=== PATIENT | male | born 1955 | race Two or more races ===

== ENCOUNTER 2016-12-23 10:33 | Inpatient (IN) | payer OTHER ==
[~2016-12-23] VITALS: Ht 167.6 cm; Wt 68.9 kg
[2016-12-23] MEDS ORDERED: ZIPRASIDONE MESYLATE 20 MG/VIAL VIAL IM ONE ×2 (11:00→11:14)
[2016-12-23] MEDS ORDERED: LORAZEPAM INJ 2 MG/ML VIAL IV ONE (11:00)
[2016-12-23] MEDS ORDERED: IV NS 0.9% 1,000 ML BAG IV ONE (11:00)
--- NOTE | 2016-12-23 11:00 | NUR ---
PT BIB FAMILY FOR INSOMNIA X 1 WEEK. PER FAMILY MEMBER PT WAS STARTED ON SOME STERIODS FOR 1 MONTH BY PMD FOR RESPIRATORY ISSUES AND STARTED ACTING PSYCHOTIC AND AGGRESSIVE. SEEN BY MD FOR EVAL. SAFETY AND COMFORT MEASURES PROVIDED. WILL MONITOR.
[2016-12-23 11:13] LABS: APPEARANCE,URINE Clear (CLEAR); BILIRUBIN,URINE Negative (NEGATIVE); BLOOD, URINE Negative Ery/uL (NEGATIVE); COLOR,URINE Yellow (YELLOW); KETONES,URINE Trace (NEGATIVE); LEUKOCYTE ESTERASE ,URINE Negative (NEGATIVE); NITRITE, URINE Negative (NEGATIVE); PH,URINE 5.5 (5.0-8.0); PROTEIN,URINE Negative (NEGATIVE); UGLUCOSE Negative (NEGATIVE); UROBILINOGEN,URINE 0.2 EU/dL (0.2)
[2016-12-23] MEDS ORDERED: LORAZEPAM INJ 2 MG/ML VIAL ONE (11:14)
[2016-12-23] MEDS ORDERED: IV NS 0.9% 1,000 ML ONE (11:14)
[2016-12-23 11:18] LABS: BACTERIA,URINE None seen /HPF (None Seen); RBC,URINE NONE SEEN /HPF (0-2); WBC,URINE 0-2 /HPF (0-3)
[2016-12-23 11:19] LABS: SQUAMOUS EPITHELIAL CELL,UR Rare /HPF (None Seen)
[2016-12-23 11:21] LABS: MONOCYTES # (AUTO) 1.1 /CMM (0.1-1.30)
[2016-12-23 11:30] LABS: RED BLOOD CELL COUNT(AUTO) 4.89 MIL/uL (4.5-6.0)
[2016-12-23 11:33] LABS: INR 1.05 (0.87-1.13); PROTHROMBIN TIME 10.9 SECS (9.5-12.7)
[2016-12-23 11:34] LABS: ALANINE AMINOTRANSFERASE 48 U/L (12-78); ALBUMIN 3.8 g/dL (3.4-5.0); ALCOHOL, BLOOD < 3 mg/dL (0-0); ALKALINE PHOSPHATASE 85 U/L (46-116); ASPARTATE AMINOTRANSFERASE 33 U/L (15-37); BILIRUBIN,DIRECT 0.2 mg/dL (0.0-0.2); BILIRUBIN,TOTAL 1.2 mg/dL (0.2-1.0); CARBON DIOXIDE 26 mmol/L (21-32); CHLORIDE 99 mmol/L (98-107); CREATININE 0.9 mg/dL (0.6-1.3); GLUCOSE 119 mg/dL (74-106); POTASSIUM 3.3 mmol/L (3.5-5.1); SODIUM SERUM 136 mmol/L (136-145); TOTAL PROTEIN, SERUM 7.2 g/dL (6.4-8.2); UREA NITROGEN, BLOOD 10 mg/dL (7-18)
[2016-12-23 11:36] LABS: ACETAMINOPHEN 0 ug/ml (10-30); BASOPHILS # (AUTO) 0.3 /CMM (0.0-0.2); BASOPHILS % (AUTO) 1.7 % (0.0-2.0); EOSINOPHILS # (AUTO) 0.1 /CMM (0.0-0.7); EOSINOPHILS % (AUTO) 0.4 % (0.0-6.0); HEMATOCRIT 44 % (39-51); HEMOGLOBIN 15.1 g/dL (13.5-17.5); LYMPHOCYTES % (AUTO) 12.5 % (20.0-44.0); MEAN CORPUSCULAR HEMOGLOBIN 31 PG (26.0-33.0); MEAN CORPUSCULAR HGB CONC 34 g/dl (31.0-36.0); MEAN CORPUSCULAR VOLUME 90 fL (80-96); MONOCYTES % (AUTO) 6.9 % (2.0-12.0); NEUTROPHILS # (AUTO) 12.5 /CMM (1.8-8.9); NEUTROPHILS % (AUTO) 78.5 % (43.0-81.0); PLATELET COUNT (AUTO) 305 /CMM (150-450); RDW COEFFICIENT OF VARIATION 12.9 (11.5-15.0); SALICYLATE < 0.2 mg/dL (2.8-20.0); TROPONIN I < 0.017 ng/mL (0.00-0.056)
[2016-12-23] MEDS ORDERED: FINA5TAB11 PO (11:43)
[2016-12-23] MEDS ORDERED: CHOL100044 PO (11:43)
[2016-12-23] MEDS ORDERED: ERGO50003 PO (11:43)
[2016-12-23] MEDS ORDERED: AMLO10TA2 PO (11:43)
[2016-12-23] MEDS ORDERED: LOSA50TA21 PO (11:43)
[2016-12-23] MEDS ORDERED: AMOX1TAB16 PO (11:43)
--- NOTE | 2016-12-23 11:51 | NUR ---
PT MEDICATED ORDERED.
--- NOTE | 2016-12-23 12:52 | NUR ---
DR MCINTOSH ON PHONE WITH DR GARSIA
--- NOTE | 2016-12-23 13:36 | NUR ---
PT'S SISTER SIGNED CONSENT FOR LUMBAR PUNCTURE, SET UP DONE AT BS. AT BS FOR LP PROCEDURE.
[2016-12-23] MEDS ORDERED: KETAMINE HCL (500MG/10ML) 50 MG/ML VIAL ONE (13:38)
--- NOTE | 2016-12-23 13:50 | NUR ---
RECEIVED VERBAL ORDERS FROM DR. MCINTOSH FOR KETAMINE 10MG IVP. ORDERS CARRIED OUT. PT MONITORED.
[2016-12-23 14:30] LABS: CSF GLUCOSE 72 mg/dL (40-70); CSF PROTEIN 26.8 mg/dL (15-45)
--- NOTE | 2016-12-23 15:15 | NUR ---
REPORT GIVEN TO JUAN MANUEL ORANTES FOR ADMISSION
--- NOTE | 2016-12-23 15:45 | NUR ---
CHIMNEY REPAIRER ADMITTING NOTES PATIENT ADMITTED TO UNIT AT 1535H VIA GURNEY ACCOMPANIED BY SISTER AND ER NURSE. ALERT AND ORIENTED X2, NO COMPLAINTS OF PAIN OR DISCOMFORTS AT TIME OF ADMISSION. PATIENT WITH DIAGNOSIS OF PSYCHOSIS AND AMS WITH SIGNIFICANT DIAGNOSIS OF HTN, BPH AND HX OF URI ON 11/2016. HE IS ALLERGIC TO BENAZEPRIL. PATIENT PLACED ON 1:1 SITTER. TELE MONITORING STARTED WITH READING OF SINUS-JOHN WITH HR OF 59, NO C/O CHEST PAIN NOR N AND V. V/S TAKEN AND RECORDED. SKIN IS INTACT. PATIENT WITH IV ACCESS ON RIGHT HAND G#2O, INTACT AND PATENT. ALL INFORMATION TAKEN FROM SISTER PT IS CONFUSED. CALL LIGHT WITHIN REACH. BED PLACED ON LOW POSITION, LOCKED WITH SIDE-RAILS UP X 2. MD AND CHARGE NURSE AWARE OF ADMISSION. WILL CONTINUE TO MONITOR ACCORDINGLY.
[2016-12-23 16:00] VITALS: BP 115/59
[2016-12-23] MEDS ORDERED: ACETAMINOPHEN 650 MG/SUPP.RECT RC PRN (19:00)
[2016-12-23] MEDS ORDERED: ONDANSETRON HCL/PF 4 MG/2 ML VIAL IVP PRN (19:00)
[2016-12-23] MEDS ORDERED: Z GUARD REMEDY 2 OZ OINT TP PRN (19:00)
[2016-12-23] MEDS ORDERED: MORPHINE SULFATE INJ 2 MG/ML DISP.SYRIN IV PRN (19:00)
--- NOTE | 2016-12-23 19:00 | NUR ---
FLUMER CLOSING NOTES PATIENT AWAKE AND RESTING IN BED WITH SISTER AND SITTER AT BEDSIDE. ALERT AND ORIENTED X2, CONVERSANT AT THIS TIME WITH NO COMPLAINTS VOICED. MD ORDER NPO AFTER MIDNIGHT. PATIENT FOR BLOOD WORKS, NEURO AND SWALLOW EVALUATION TOMORROW. ON TELE MONITORING WITH CURRENT READING OF SR AND HR OF 80. IV ACCESS ON RIGHT HAND INTACT AND PATENT WITH IVF OF D5 1/2 NS @ 75ML/HR STARTE, NO SIGNS OF INFILTRATION NOTED. ALL NEEDS AND CARE PROVIDED WELL. CALL LIGHT WITHIN REACH. BED LOW AND LOCKED. ALL SAFETY PRECAUTIONS MAINTAINED. WILL ENDORSED TO SHIPPING SUPPORT CLERK FOR JANELL.
[2016-12-23] MEDS ORDERED: IV SET PRIMARY PUMP SET 1 EA INFUS.SET MC ONE (19:04)
[2016-12-23] MEDS: IV D5/0.45 NACL 1,000 ML IV PRN (19:09)
[2016-12-23 20:19] VITALS: BP 108/62
--- NOTE | 2016-12-23 20:51 | NUR ---
GETTER WELDER INITIAL NOTES RECEIVED PATIENT AWAKE IN BED WITH SISTER AT BEDSIDE. ALERT AND ORIENTED X2. CONFUSED. NO SOB. NO ACUTE DISTRESS NOTED. IV ACCESS ON RIGHT HAND INTACT AND PATENT WITH IVF OF D5 1/2 NS @ 75ML/HR. NO SIGNS OF REDNESS/INFILTRATION NOTED. ALL NEEDS AND CARE PROVIDED WELL. CALL LIGHT WITHIN REACH. BED LOW AND LOCKED. ALL SAFETY PRECAUTIONS MAINTAINED. WILL CONTINUE TO MONITOR FOR SAFETY.
--- NOTE | 2016-12-23 20:57 | NUR ---
PT'S SISTER REQUESTING FOR SLEEPING PILLS. PT DID NOT SLEEP LAST NIGHT. CALLED DR. TROY REGARDING THE SLEEPING PILLS. ORDERED AMBIEN 5MG ONE TIME ONLY. NOTED AND CARRIED OUT.
[2016-12-23] MEDS: ENOXAPARIN SODIUM 40 MG/0.4 ML DISP.SYRIN SQ SCH (21:17)
[2016-12-23 21:34] VITALS: BP 108/62
[2016-12-23] MEDS ORDERED: ZOLPIDEM TARTRATE 5 MG TABLET PO ONE (22:00)
[2016-12-23 23:46] VITALS: BP 99/63
[2016-12-24 04:13] VITALS: BP 129/85
--- NOTE | 2016-12-24 06:22 | NUR ---
RN GERIATRIC CLOSING NOTES PATIENT AWAKE IN BED. ALERT AND ORIENTED X2, NO COMPLAINTS OF PAIN/DISCOMFORT NOTED. IV ACCESS ON RIGHT HAND INTACT AND PATENT WITH IVF OF D5 1/2 NS @ 75ML/HR. NO SIGNS OF INFILTRATION NOTED. ALL NEEDS AND CARE PROVIDED WELL. CALL LIGHT WITHIN REACH. BED LOW AND LOCKED. ALL SAFETY PRECAUTIONS MAINTAINED. WILL ENDORSED TO NEXT SHIFT FOR JANELL.
[2016-12-24] MEDS: IV D5/0.45 NACL 1,000 ML IV PRN (06:50)
[2016-12-24 07:20] LABS: BASOPHILS % (AUTO) 0.3 % (0.0-2.0); EOSINOPHILS # (AUTO) 0.1 /CMM (0.0-0.7); EOSINOPHILS % (AUTO) 0.5 % (0.0-6.0); HEMATOCRIT 40 % (39-51); HEMOGLOBIN 13.7 g/dL (13.5-17.5); LYMPHOCYTES # (AUTO) 1.7 /CMM (0.8-4.8); LYMPHOCYTES % (AUTO) 15.1 % (20.0-44.0); MEAN CORPUSCULAR HEMOGLOBIN 32 PG (26.0-33.0); MEAN CORPUSCULAR HGB CONC 35 g/dl (31.0-36.0); MEAN CORPUSCULAR VOLUME 91 fL (80-96); MONOCYTES # (AUTO) 0.8 /CMM (0.1-1.30); NEUTROPHILS # (AUTO) 8.8 /CMM (1.8-8.9); NEUTROPHILS % (AUTO) 77.1 % (43.0-81.0); PLATELET COUNT (AUTO) 244 /CMM (150-450); RDW COEFFICIENT OF VARIATION 13.6 (11.5-15.0); RED BLOOD CELL COUNT(AUTO) 4.33 MIL/uL (4.5-6.0); WHITE BLOOD COUNT (AUTO) 11.4 K/uL (4.3-11.0)
[2016-12-24 07:22] LABS: CREATININE 0.8 mg/dL (0.6-1.3); PHOSPHORUS 2.7 mg/dL (2.5-4.9); POTASSIUM 2.9 mmol/L (3.5-5.1)
[2016-12-24 07:32] LABS: THYROID STIMULATING HORMONE 0.791 uIU/mL (0.358-3.74)
[2016-12-24 08:00] VITALS: BP 139/92
--- NOTE | 2016-12-24 08:09 | NUR ---
TRANSLATOR NOTES RECEIVED PATIENT IN BED, IN NO APPARENT DISTRESS, DENIES SOB, DENIES PAIN.ON TELE MONITORING, SR HR 69. PATIENT IN NPO DO TO POSSIBLE TESTS. FOR SWALLOW EVAL TODAY. IV LINE ON RIGHT HAND PATENT, INFUSING D5 1/2 NS AT 75 ML/HR. ALL NEEDS MET, KEPT CLEAN AND DRY. SITTER AT BED SIDE, CALL LIGHT WITHIN REACH.
[2016-12-24] MEDS: PANTOPRAZOLE 40 MG VIAL IV SCH (09:00)
--- NOTE | 2016-12-24 09:29 | NUR ---
STERILIZER MACHINE OPERATOR NOTES PER DR GARSIA ITS OK FOR PATIENT TO EAT, OK TO CHANGE DIET ORDER.
[2016-12-24] MEDS ORDERED: SECONDARY IV SET 1 EA INFUS.SET MC ONE (10:51)
[2016-12-24] MEDS ORDERED: IV SET PRIMARY PUMP SET 1 EA INFUS.SET MC ONE (11:06)
[2016-12-24] MEDS: POTASSIUM CL. PREMIX PERIPHER. 50 ML IV SCH ×6 (11:49→20:57)
[2016-12-24] MEDS ORDERED: IV NS 0.9% 250 ML IV ONE (12:59)
[2016-12-24] MEDS: CLOTRIMAZOLE 1% 15 GM TUBE TP SCH (15:30)
[2016-12-24 16:00] VITALS: BP 114/80
--- NOTE | 2016-12-24 16:40 | NUR ---
RN MS NOTES PER DR SUN SANDERS TO ADD LOTRIMIN CREAM, ALL ORDERS NOTED AND CARRIED OUT.
--- NOTE | 2016-12-24 19:30 | NUR ---
RN MS CLOSING NOTES PATIENT IN BED, A/OX2 IN NO APPARENT DISTRESS, DENIES PAIN, DENIES SOB.IV LINE ON RIGHT HAND WAS PULLED OUT, PM NURSE AWARE. ALL DUE MEDS GIVEN, ALL NEEDS MET, KEPT CLEAN AND DRY. SEEN AND EVALUATED BY SPEECH THERAPY, PER MINOR COUGHING WHEN EATING CRACKERS, SHE SATES THAT PER PATIENT AND FAMILY HE IS FINE. PER ST RECOMMENDATION, KEEP AN EYE ON HIM AND ORDER ST EVAL IF ANY ISSUES OCCUR.
--- NOTE | 2016-12-24 19:30 | NUR ---
MS RN NOTE RECEIVED PATIENT FROM DAY SHIFT, PATIENT IS ALERT AND ORIENTEDX2-3, NO S/S OF RESPIRATORY DISTRESS OR PAIN AT THIS TIME. IV LINE WAS DISCONTINUED, WILL REINSERT THE NEW ONE, WILL F/U 2X POTASSIUM BAGS. SRX2, BED IN LOW POSITION, CALL LIGHT WITHIN REACH, WILL CONTINUE TO MONITOR PATIENT.
--- NOTE | 2016-12-24 19:50 | NUR ---
MS RN NOTE REINSERTED THE IV ACCESS ON RIGHT WRIST 20G, PATIENT TOLERATED THE PROCEDURE.
[2016-12-24 20:00] VITALS: BP 131/72
[2016-12-24] MEDS: ENOXAPARIN SODIUM 40 MG/0.4 ML DISP.SYRIN SQ SCH (20:42)
[2016-12-25] MEDS ORDERED: ACETAMINOPHEN 325 MG TABLET ONE (01:36)
[2016-12-25] MEDS ORDERED: ACETAMINOPHEN 325 MG TABLET PO PRN (02:00)
[2016-12-25 06:29] LABS: BASOPHILS % (AUTO) 0.4 % (0.0-2.0); EOSINOPHILS # (AUTO) 0.1 /CMM (0.0-0.7); EOSINOPHILS % (AUTO) 1.1 % (0.0-6.0); HEMATOCRIT 43 % (39-51); HEMOGLOBIN 14.6 g/dL (13.5-17.5); LYMPHOCYTES # (AUTO) 1.8 /CMM (0.8-4.8); LYMPHOCYTES % (AUTO) 17.6 % (20.0-44.0); MEAN CORPUSCULAR HEMOGLOBIN 31 PG (26.0-33.0); MEAN CORPUSCULAR HGB CONC 34 g/dl (31.0-36.0); MEAN CORPUSCULAR VOLUME 93 fL (80-96); MONOCYTES # (AUTO) 0.8 /CMM (0.1-1.30); MONOCYTES % (AUTO) 8.4 % (2.0-12.0); NEUTROPHILS # (AUTO) 7.3 /CMM (1.8-8.9); NEUTROPHILS % (AUTO) 72.5 % (43.0-81.0); PLATELET COUNT (AUTO) 274 /CMM (150-450); RDW COEFFICIENT OF VARIATION 13.8 (11.5-15.0); RED BLOOD CELL COUNT(AUTO) 4.67 MIL/uL (4.5-6.0); WHITE BLOOD COUNT (AUTO) 10.1 K/uL (4.3-11.0)
[2016-12-25 06:39] LABS: CALCIUM, SERUM 8.5 mg/dL (8.5-10.1); CREATININE 0.9 mg/dL (0.6-1.3); POTASSIUM 3.4 mmol/L (3.5-5.1)
--- NOTE | 2016-12-25 07:09 | NUR ---
MS RN NOTE PATIENT IS SLEEPING IN BED COMFORTABLY, NO S/S OF RESPIRATORY DISTRESS OR PAIN AT THIS TIME. IV ON RIGHT WRIST IS PATENT AND INTACT. WILL ENDORSE TO DAY SHIFT FOR JANELL.
--- NOTE | 2016-12-25 07:25 | NUR ---
AM RN NOTE Received patient sleeping comfortably in his bed, 1:1 sitter and family @ bedside. No acute distress noted. IV site intact and patent. Will continue to monitor. Bed in low locked position.
[2016-12-25 08:00] VITALS: BP 136/88
[2016-12-25] MEDS: PANTOPRAZOLE 40 MG VIAL IV SCH (08:25)
[2016-12-25] MEDS: CLOTRIMAZOLE 1% 15 GM TUBE TP SCH (08:25)
--- NOTE | 2016-12-25 08:30 | NUR ---
AM RN NOTE Patient refused RN to apply Lotrimin cream on penile area, stated he will apply himself.
--- NOTE | 2016-12-25 10:00 | NUR ---
AM RN NOTE Patient awake, sister at bedside. Pt noted with episodes of crying and laughing at same time. Emotional support provided by staff. Provided safe and calm environment. 1:1 sitter @ bedside.
[2016-12-25 10:13] LABS: *CRYPTOCOCCUS AG, CSF Negative (Negative)
[2016-12-25] MEDS: POTASSIUM CL. PREMIX PERIPHER. 50 ML IV SCH ×2 (10:28→12:05)
--- NOTE | 2016-12-25 11:30 | NUR ---
AM RN NOTE Spoke with Gunjan at [facility], Dr. Yates covering for today. Pt's face sheet faxed to [facility] as ordered by Dr. Lozada for Psych consult.
[2016-12-25 12:15] LABS: *BACT BETA STREP (GROUP B) AG Negative (Negative); *BACT NEISSERIA MENING. AG Negative (Negative); *BACT STREP PNEUMONIAE AG Negative (Negative)
--- NOTE | 2016-12-25 13:07 | NUR ---
AM RN NOTE Pt seen and assessed by Dr. Yates (Psychiatrist) with new orders. Sister at bedside.
[2016-12-25] MEDS: ESCITALOPRAM OXALATE (10 MG) 10 MG TABLET PO SCH (13:50)
--- NOTE | 2016-12-25 15:37 | NUR ---
AM RN NOTE Pt's family requested for manager ems, CN (Sadie) aware. No manager ems available during weekend per Sculpture Instructor and CN. Family made aware.
[2016-12-25 16:00] VITALS: BP 148/90
--- NOTE | 2016-12-25 18:25 | NUR ---
AM RN NOTE Patient awake and calm sitting in the chair at this time. Sister and 1:1 sitter @ bedside. Pt requested for Ahmet, called Darin (Pharmacist) will deliver medication. No behavioral outbursts noted at this time. Will endorse care to next shift.
[2016-12-25] MEDS: BENEFIBER 4 GM 1 EA PACKET PO PRN (18:43)
--- NOTE | 2016-12-25 19:05 | NUR ---
RN NOTE RECEIVED REPORT. PT AAOX3, APPEARS CALM. SISTER AND 1:1 AT BEDSIDE. NO S/S OF ANY DISTRESS AT THIS TIME. IV INTACT AND PATNET, BUT REFUSING FLUIDS. CALL LIGHT IN REACH, WILL CONT TO MONITOR.
[2016-12-25] MEDS: ENOXAPARIN SODIUM 40 MG/0.4 ML DISP.SYRIN SQ SCH (21:27)
[2016-12-25] MEDS ORDERED: QUETIAPINE FUMARATE 100 MG TABLET PO SCH (22:00)
--- NOTE | 2016-12-26 06:36 | NUR ---
RN NOTE NO SIGNIFICANT EVENTS OVERNIGHT. PT IN NO DISTRESS AT THIS TIME. REFUSING IV FLUIDS. SISTER AT BEDISDE, CALL LIGHT IN REACH. WILL F/U WITH DAY SHIFT FOR JANELL.
[2016-12-26 06:48] LABS: CALCIUM, SERUM 8.4 mg/dL (8.5-10.1); CREATININE 0.9 mg/dL (0.6-1.3); MAGNESIUM 1.9 mg/dL (1.8-2.4); POTASSIUM 3.1 mmol/L (3.5-5.1)
[2016-12-26] MEDS: BENEFIBER 4 GM 1 EA PACKET PO PRN (07:25)
--- NOTE | 2016-12-26 07:30 | NUR ---
AM RN NOTE Received patient awake, sitting in the chair and sister at side. Pt denies any pain at this time. Pt c/o constipation and requested for Benefiber, PRN dose given as ordered. PO fluids offered as tolerated. Pt refusing IV hydrations at this time. IV site intact and patent. Will continue to monitor.
[2016-12-26 08:00] VITALS: BP 150/97
[2016-12-26] MEDS ORDERED: POTASSIUM CHLORIDE 20 MEQ TAB.PRT.SR PO ONE (08:30)
[2016-12-26] MEDS: ESCITALOPRAM OXALATE (10 MG) 10 MG TABLET PO SCH (08:43)
[2016-12-26] MEDS: PANTOPRAZOLE 40 MG VIAL IV SCH (08:43)
[2016-12-26] MEDS: CLOTRIMAZOLE 1% 15 GM TUBE TP SCH ×2 (09:00→09:01)
--- NOTE | 2016-12-26 09:00 | NUR ---
AM RN NOTE Patient awake, routine morning meds given with multiple prompting. Pt was starring at medications and telling RN "I known why you are giving me medication" and then pt will be quiet for few mins. Will continue to monitor his behavior.
--- NOTE | 2016-12-26 11:15 | NUR ---
AM RN NOTE Pt refused nurse to apply lotrimin cream and wants doctor to take a look on his penile area. Notified Da VOSS.
--- NOTE | 2016-12-26 12:00 | NUR ---
AM RN NOTE Pt refusing IV insertion, Da ASH WORKER made aware.
--- NOTE | 2016-12-26 12:00 | NUR ---
AM RN NOTE Pt's IV site noted with leakage, removed. Attempted to re-insert new site, pt refused. Will re-offer again.
[2016-12-26 16:00] VITALS: BP 136/82
--- NOTE | 2016-12-26 18:59 | NUR ---
AM RN NOTE Pt still refusing for IV insertion. Family at bedside. No acute distress noted. Will continue to monitor.
[2016-12-26 20:00] VITALS: BP 139/91
--- NOTE | 2016-12-26 20:30 | NUR ---
MS RN OPENING NOTES: RECEIVED REPORT FROM ROLANDA BALLESTEROS. PATIENT SITTING ON CHAIR, AOX2, ON ROOM AIR, BREATHING EVEN AND UNLABORED. DENIES ANY PAIN/ DISTRESS AT THIS TIME. NO PIV ACCESS. PATIENT APPEARS RESTLESS AND WOULD PACE BACK AND FORTH, MAINTAINS POOR EYE CONTACT WHEN SPEAKING WITH NURSE AND WITH SISTER, WHO IS AT BEDSIDE. COMPLAINS OF POOR SLEEP, AND STATES THAT HE WANTS TO BE ABLE TO SLEEP TONIGHT. SISTER ASKED ABOUT THE SEROQUEL DOSE AND WHEN IT WILL BE GIVEN, PER SISTER, THEY WANT IT ADMINISTERED LATER TOWARDS MIDNIGHT, SO PATIENT CAN SLEEP BETTER. PROVIDED FOR COMFORT AND SAFETY. WILL CONT TO MONITOR.
[2016-12-26] MEDS: ENOXAPARIN SODIUM 40 MG/0.4 ML DISP.SYRIN SQ SCH (21:10)
--- NOTE | 2016-12-26 23:04 | NUR ---
RN NOTES: SPOKE TO DR VILLAFANA OVER PHONE, PER MD, HE HAD ALREADY CHANGED THE ORDER OF SEROQUEL TO 100 MG PO HS. INFORMED MD THAT ORDER HAS BEEN UNCHANGED IN [facility], RECONFIRMED / READ BACK T.O OF SEROQUEL 100 MG PO AT HS. WILL CONT TO MONITOR.
[2016-12-26] MEDS ORDERED: QUETIAPINE FUMARATE 100 MG TABLET ONE (23:07)
--- NOTE | 2016-12-26 23:28 | NUR ---
RN NOTES: EXPLAINED TO PATIENT THAT SEROQUEL 100 MG PO MUST BE GIVEN AT THIS TIME, HOWEVER, PATIENT WANTS TO TAKE IT ANOTHER TIME AND WILL CALL ONCE HE IS READY FOR IT.
[2016-12-27] MEDS: QUETIAPINE FUMARATE 100 MG TABLET PO SCH ×2 (00:26→23:52)
--- NOTE | 2016-12-27 07:00 | NUR ---
MS RN CLOSING NOTES: PATIENT SITTING OVER BED, AOX2, ON ROOM AIR, BREATHING EVEN AND UNLABORED. DENIES PAIN AT THIS TIME. STATES THAT HIS SLEEP HAS IMPROVED, HE WAS ABLE TO SLEEP FROM 0030 AM TO 0600 AM. DUE MEDS GIVEN. PROVIDED FOR COMFORT AND SAFETY. WILL ENDORSE TO AM RN FOR JANELL.
--- NOTE | 2016-12-27 07:30 | NUR ---
MS RN RECEIVED ON BED, AWAKE,LAERT,ORIENTED X4,NOT IN ANY FORM OF DISTRESS, RESPIRATIONS EVEN AND UNLABORED,NO SOB NOTED, LUNGS ARE CLEAR,ABDOMEN SOFT,POSITIVE BOWEL SOUNDS, DENIES PAIN AT THIS TIME, AT BEDSIDE.
[2016-12-27 08:00] VITALS: BP 143/83
[2016-12-27 08:09] LABS: CALCIUM, SERUM 8.9 mg/dL (8.5-10.1); CREATININE 0.8 mg/dL (0.6-1.3); POTASSIUM 3.7 mmol/L (3.5-5.1)
[2016-12-27 08:11] LABS: VDRL, CSF Non Reactive (Non Rea:<1:1)
--- NOTE | 2016-12-27 09:30 | NUR ---
MS ORANTES BREAKFAST SERVED,DUE MEDS GIVEN,TOLERATE WELL.
[2016-12-27] MEDS: ESCITALOPRAM OXALATE (10 MG) 10 MG TABLET PO SCH (09:38)
[2016-12-27] MEDS: PANTOPRAZOLE 40 MG VIAL IV SCH (09:39)
--- NOTE | 2016-12-27 13:30 | NUR ---
MS RN WAS SEEN BY DR. PATTY THOMSON W/ ORDERS MADE AND CARRIED OUT.
[2016-12-27 16:00] VITALS: BP 131/94
--- NOTE | 2016-12-27 17:52 | NUR ---
MS RN ON BED, NO DISTRESS NOTED.
[2016-12-27 20:00] VITALS: BP 131/80
--- NOTE | 2016-12-27 20:25 | NUR ---
MS/RN PATIENT AWAKE, ALERT, ORIENTED, COMFORTABLE, NO C/O PAIN, NO DISTRESS NOTED, FAMILY MEMBERS AT BEDSIDE, CALL LIGHT IN REACH. WILL MONITOR.
[2016-12-27] MEDS: ENOXAPARIN SODIUM 40 MG/0.4 ML DISP.SYRIN SQ SCH (21:38)
--- NOTE | 2016-12-28 01:47 | NUR ---
MS/RN PATIENT IS SLEEPING AT THIS TIME, APPEAR COMFORTABLE, NO SIGNS OF DISTRESS NOTED, CALL LIGHT IN REACH. WILL CONTINUE TO MONITOR.
--- NOTE | 2016-12-28 06:22 | NUR ---
MS/RN PATIENT AWAKE AT THIS TIME, CALM AND COMFORTABLE, ALL NEEDS ATTENDED AT THIS TIME. WILL CONTINUE TO MONITOR.
[2016-12-28 08:00] VITALS: BP 130/85
--- NOTE | 2016-12-28 08:01 | NUR ---
RN OPENING NOTES RECEIVED PATIENT ON BED RESTING. AWAKE, ALERT AND ORIENTED X3. RESPIRATION EVEN AND UNLABORED. NO SOB, NO ACUTE DISTRESS NOTED. NO COMPLAINS OF PAIN. BED IN LOWEST POSITION, CALL LIGHT WITHIN REACH. WILL CONTINUE TO MONITOR.
[2016-12-28 08:20] LABS: BASOPHILS % (AUTO) 0.6 % (0.0-2.0); EOSINOPHILS # (AUTO) 0.2 /CMM (0.0-0.7); EOSINOPHILS % (AUTO) 2.3 % (0.0-6.0); HEMATOCRIT 42 % (39-51); HEMOGLOBIN 14.3 g/dL (13.5-17.5); LYMPHOCYTES # (AUTO) 1.8 /CMM (0.8-4.8); LYMPHOCYTES % (AUTO) 24.9 % (20.0-44.0); MEAN CORPUSCULAR HEMOGLOBIN 31 PG (26.0-33.0); MEAN CORPUSCULAR HGB CONC 34 g/dl (31.0-36.0); MEAN CORPUSCULAR VOLUME 91 fL (80-96); MONOCYTES # (AUTO) 0.6 /CMM (0.1-1.30); MONOCYTES % (AUTO) 8.5 % (2.0-12.0); NEUTROPHILS # (AUTO) 4.7 /CMM (1.8-8.9); NEUTROPHILS % (AUTO) 63.7 % (43.0-81.0); PLATELET COUNT (AUTO) 235 /CMM (150-450); RDW COEFFICIENT OF VARIATION 13.4 (11.5-15.0); RED BLOOD CELL COUNT(AUTO) 4.56 MIL/uL (4.5-6.0); WHITE BLOOD COUNT (AUTO) 7.4 K/uL (4.3-11.0)
[2016-12-28 08:35] LABS: CALCIUM, SERUM 8.7 mg/dL (8.5-10.1); CREATININE 0.8 mg/dL (0.6-1.3); MAGNESIUM 2.1 mg/dL (1.8-2.4); POTASSIUM 3.7 mmol/L (3.5-5.1)
[2016-12-28] MEDS: PANTOPRAZOLE 40 MG VIAL IV SCH (09:00)
[2016-12-28] MEDS: CLOTRIMAZOLE 1% 15 GM TUBE TP SCH (09:13)
[2016-12-28] MEDS: BENEFIBER 4 GM 1 EA PACKET PO PRN (09:14)
[2016-12-28] MEDS ORDERED: DOXY100C2 PO (12:26)
[2016-12-28] MEDS ORDERED: AZIT500T PO (12:26)
[2016-12-28] MEDS ORDERED: CLOT15CR35 TP (12:26)
[2016-12-28] MEDS ORDERED: QUET100T PO (12:26)
[2016-12-28] MEDS ORDERED: PENICILLIN G BENZATHINE 2.4 MMU/4 ML ML IM ONE (12:30)
[2016-12-28 16:00] VITALS: BP 123/93
[2016-12-28 16:11] VITALS: BP 123/93
--- NOTE | 2016-12-28 19:00 | NUR ---
PATIENT NO DISTRESS. ALL NEEDS ATTENDED AND PROVIDED. KEPT PT SAFE. CALL LIGHTS WITHIN REACH. ENDORSED TO CLINICAL MANAGER RN FOR JANELL
--- NOTE | 2016-12-28 20:32 | NUR ---
MS RN NOTES PT DISCHARGED IN STABLE CONDITION. ALERT AND ORIENTED. ON ROOM AIR TOLERATED WELL. DISCHARGED INSTRUCTION WAS GIVEN BY THE MORNING NURSE. NO IV ACCESS NOTED. DENIES ANY PAIN. ALL BELONGINGS WITH THE SISTER. PT WAS ACCOMPANIED TO THEIR PRIVATE CAR VIA WHEELCHAIR.
== END 2016-12-28 20:05 | disposition home or self-care (01) | DRG 751 ==
LOC: ER 10:36 → MEDSG2 13:40 → MED 15:02 → TELE 19:59 → MED 12-24 10:50
PROC: 009U3ZX Drainage of Spinal Canal, Percutaneous Approach, Diagnostic (ICD-10-PCS; principal; 2016-12-23)
DX: F23 Brief psychotic disorder (principal); I10 Essential (primary) hypertension; E87.6 Hypokalemia; N40.0 Benign prostatic hyperplasia without lower urinary tract symptoms; T38.0X5A Adverse effect of glucocorticoids and synthetic analogues, initial encounter; Y92.009 Unspecified place in unspecified non-institutional (private) residence as the place of occurrence of the external cause; G47.00 Insomnia, unspecified; D72.828 Other elevated white blood cell count; F31.9 Bipolar disorder, unspecified; N48.5 Ulcer of penis
CPT/HCPCS: 36415; 70450-TC; 71010-TC; 80048-TC; 80061-TC; 80076-TC; 80305; 81000-TC; 82962-TC; 83735-TC; 84100-TC; 84443-TC; 84484-TC; 85025-TC; 85730-TC; 86592; 87070-TC; 87081-TC; 87802; 87899; 89051-TC; 92611-TC; 93307-TC; 97001-TC; A4606; C9113; G0480; J0558; J1650; J2060; J3480; J3486; J3490; J7030; J7050; Z7610

== ENCOUNTER 2019-07-31 04:31 | Emergency (ER) | payer MEDICAID, MEDICARE, OTHER ==
[~2019-07-31] VITALS: Ht 167.6 cm; Wt 77.1 kg
[~2019-07-31 04:31] MED LIST: AMLO10TA7 PO; AZIT500T PO; CHOL100044 PO; CLOT15CR35 TP; DOXY100C2 PO; ERGO500014 PO; FINA5TAB11 PO; LOSA50TA39 PO; QUET100T PO
--- NOTE | 2019-07-31 04:46 | NUR ---
BIBS FOR C/O ABD PAIN AND N/V SINCE TUESDAY. LBM: A VERY SMALL AMOUNT TODAY. PT REPORTED HE WAS JUST DISCHARGED FROM [facility] 3 DAYS AGO W/ DX OF INTUSSUSCEPTION OF INTESTINE.
[2019-07-31 05:15] LABS: BASOPHILS # (AUTO) 0.1 /CMM (0.0-0.2); BASOPHILS % (AUTO) 0.6 % (0.0-2.0); EOSINOPHILS % (AUTO) 3.4 % (0.0-6.0); HEMATOCRIT 43 % (39-51); HEMOGLOBIN 14.6 g/dL (13.5-17.5); LYMPHOCYTES # (AUTO) 1.7 /CMM (0.8-4.8); LYMPHOCYTES % (AUTO) 21.7 % (20.0-44.0); MEAN CORPUSCULAR HGB CONC 34 g/dl (31.0-36.0); MEAN CORPUSCULAR VOLUME 91 fL (80-96); MONOCYTES # (AUTO) 0.8 /CMM (0.1-1.30); MONOCYTES % (AUTO) 9.8 % (2.0-12.0); NEUTROPHILS # (AUTO) 5.1 /CMM (1.8-8.9); NEUTROPHILS % (AUTO) 64.5 % (43.0-81.0); PLATELET COUNT (AUTO) 250 /CMM (150-450); RED BLOOD CELL COUNT(AUTO) 4.65 MIL/uL (4.5-6.0); WHITE BLOOD COUNT (AUTO) 7.9 K/uL (4.3-11.0)
--- NOTE | 2019-07-31 05:16 | NUR ---
IV LINE STABLISHED. BLOOD DRAWN AND SENT TO THE LAB, ECG TECH AT THE BED SIDE
[2019-07-31] MEDS ORDERED: IOHEXOL-300 100 ML VIAL IV ONE (05:20)
[2019-07-31 05:28] LABS: CALCIUM, SERUM 8.8 mg/dL (8.5-10.1); CREATININE 0.9 mg/dL (0.6-1.3); POTASSIUM 3.3 mmol/L (3.5-5.1)
[2019-07-31] MEDS ORDERED: IV NS 0.9% 1,000 ML BAG IV ONE (05:30)
--- NOTE | 2019-07-31 05:36 | NUR ---
PT LEFT FOR CT
[2019-07-31 05:37] LABS: ALBUMIN 3.5 g/dL (3.4-5.0); BILIRUBIN,DIRECT 0.1 mg/dL (0.0-0.2); BILIRUBIN,TOTAL 0.7 mg/dL (0.2-1.0); TOTAL PROTEIN, SERUM 6.8 g/dL (6.4-8.2)
--- NOTE | 2019-07-31 06:30 | NUR ---
IV removed. Catheter intact and site benign. Pressure and 4x4 applied to site. No bleeding noted.Patient discharged to home in stable condition. Rx and Written and verbal after care instructions given. Patient verbalizes understanding of instruction.
[2019-07-31 06:41] VITALS: BP 159/92
== END 2019-07-31 06:30 | disposition home or self-care (01) ==
LOC: ER 04:34
DX: K42.9 Umbilical hernia without obstruction or gangrene (principal); R10.13 Epigastric pain; I10 Essential (primary) hypertension; Z98.890 Other specified postprocedural states; Z88.8 Allergy status to other drugs, medicaments and biological substances; Z79.899 Other long term (current) drug therapy
CPT/HCPCS: 36415; 71045; 74177; 80048; 80076; 83690; 85025; 85730; 93005; 99284; J7030; Q9967

== ENCOUNTER 2020-10-20 18:08 | Emergency (ER) | payer OTHER ==
[~2020-10-20] VITALS: Ht 167.6 cm; Wt 71.2 kg
[~2020-10-20 18:08] MED LIST changes: +AMLO-213 PO; -AMLO10TA7 PO
--- NOTE | 2020-10-20 18:30 | NUR ---
THROAT PAIN, S/P RIGHT UPPER RETROMOLAR BIOPSY OF LESION TO R/O CA THIS MORNING AT [facility]. PATIENT A/OX4, BREATHING EVEN AND UNLABORED, NO SOB NOTED, NEEDS ATTENDED. KEPT COMFORTABLE.
[2020-10-20] MEDS ORDERED: ONDANSETRON 4 MG TAB.RAPDIS SL ONE (19:00)
[2020-10-20] MEDS ORDERED: HYDROCODONE/APAP 5/325MG TABLET PO ONE (19:00)
[2020-10-20] MEDS ORDERED: HYDR-4275 PO (19:06)
[2020-10-20] MEDS ORDERED: HYDROCODONE/APAP 5/325MG TABLET ONE (19:16)
[2020-10-20] MEDS ORDERED: ONDANSETRON 4 MG TAB.RAPDIS ONE (19:16)
[2020-10-20 19:25] VITALS: BP 131/76
--- NOTE | 2020-10-20 19:25 | NUR ---
Patient discharged to home in stable condition. Written and verbal after care instructions given. Patient verbalizes understanding of instruction and RX. Pt ambulated out of ED. VSS. Told to follow up with .
== END 2020-10-20 19:26 | disposition home or self-care (01) ==
LOC: ER 18:08
DX: G89.18 Other acute postprocedural pain (principal); I10 Essential (primary) hypertension; I25.10 Atherosclerotic heart disease of native coronary artery without angina pectoris; N40.0 Benign prostatic hyperplasia without lower urinary tract symptoms; Z98.890 Other specified postprocedural states; Z88.8 Allergy status to other drugs, medicaments and biological substances; Z79.899 Other long term (current) drug therapy
CPT/HCPCS: 99283; Q0162

== ENCOUNTER 2020-11-05 19:59 | Emergency (ER) | payer OTHER ==
[~2020-11-05] VITALS: Ht 167.6 cm; Wt 76.2 kg
[~2020-11-05 19:59] MED LIST changes: +HYDR-4275 PO
--- NOTE | 2020-11-05 20:15 | NUR ---
PRESENTED TO THE ER FOR C/O ABD PAIN, N/V FOR THE PAST 2 DAYS. + CONSTIPATION . W. MEDICAL HX OF SBO IN 04/2020. PT AMBULATORY TO BED 4 ER. WAS PLACED ON A MONITOR, VSS. WILL CONT TO MONITOR ,
[2020-11-05] MEDS ORDERED: MORPHINE SULFATE INJ 4 MG/ML DISP.SYRIN ONE (20:30)
[2020-11-05] MEDS ORDERED: ONDANSETRON HCL/PF 4 MG/2 ML VIAL ONE (20:30)
[2020-11-05] MEDS ORDERED: MORPHINE SULFATE INJ 2 MG/ML DISP.SYRIN IV ONE (20:30)
[2020-11-05] MEDS ORDERED: ONDANSETRON HCL/PF 4 MG/2 ML VIAL IVP ONE (20:30)
[2020-11-05] MEDS ORDERED: IV NS 0.9% 1,000 ML BAG IV ONE (20:30)
--- NOTE | 2020-11-05 20:31 | NUR ---
urine collected. sent to lab
[2020-11-05 20:39] LABS: BILIRUBIN,URINE NEGATIVE (NEGATIVE); COLOR,URINE YELLOW (YELLOW); LEUKOCYTE ESTERASE ,URINE NEGATIVE (NEGATIVE); NITRITE, URINE NEGATIVE (NEGATIVE); PROTEIN,URINE NEGATIVE (NEGATIVE); UGLUCOSE NEGATIVE (NEGATIVE); UROBILINOGEN,URINE 0.2 EU/dL (0.2)
[2020-11-05 20:44] LABS: BASOPHILS % (AUTO) 0.3 % (0.0-2.0); HEMATOCRIT 41 % (39-51); HEMOGLOBIN 14.1 g/dL (13.5-17.5); LYMPHOCYTES # (AUTO) 2.1 /CMM (0.8-4.8); LYMPHOCYTES % (AUTO) 22.4 % (20.0-44.0); MEAN CORPUSCULAR HGB CONC 34 g/dl (31.0-36.0); MEAN CORPUSCULAR VOLUME 91 fL (80-96); MONOCYTES # (AUTO) 0.9 /CMM (0.1-1.30); MONOCYTES % (AUTO) 9.3 % (2.0-12.0); NEUTROPHILS # (AUTO) 6.1 /CMM (1.8-8.9); PLATELET COUNT (AUTO) 339 /CMM (150-450); RED BLOOD CELL COUNT(AUTO) 4.48 MIL/uL (4.5-6.0); WHITE BLOOD COUNT (AUTO) 9.2 K/uL (4.3-11.0)
[2020-11-05 20:46] LABS: CALCIUM, SERUM 8.6 mg/dL (8.5-10.1)
[2020-11-05 20:48] LABS: POTASSIUM 2.7 mmol/L (3.5-5.1)
[2020-11-05 20:52] LABS: ALBUMIN 3.8 g/dL (3.4-5.0); BILIRUBIN,DIRECT 0.2 mg/dL (0.0-0.2); BILIRUBIN,TOTAL 0.7 mg/dL (0.2-1.0); TOTAL PROTEIN, SERUM 7.6 g/dL (6.4-8.2)
--- NOTE | 2020-11-05 20:52 | NUR ---
PT WAS TAKEN TO CT
[2020-11-05] MEDS ORDERED: IOHEXOL-300 100 ML VIAL IV ONE (20:53)
[2020-11-05] MEDS ORDERED: POTASSIUM CL. PREMIX PERIPHER. 200 ML ONE (21:03)
[2020-11-05] MEDS: POTASSIUM CL. PREMIX PERIPHER. 50 ML IV SCH ×3 (21:14→23:00)
--- NOTE | 2020-11-05 21:44 | NUR ---
DR NEGRON AT BED SIDE
[2020-11-05] MEDS ORDERED: POTASSIUM CHLORIDE 20 MEQ TAB.PRT.SR PO ONE ×2 (22:00→22:05)
--- NOTE | 2020-11-06 01:44 | NUR ---
Patient discharged to home in stable condition. Written and verbal after care instructions given. Patient verbalizes understanding of instruction.
[2020-11-06 01:45] VITALS: BP 137/63
== END 2020-11-06 01:45 | disposition home or self-care (01) ==
LOC: ER 19:59
DX: R10.33 Periumbilical pain (principal); R10.84 Generalized abdominal pain; E87.6 Hypokalemia; R11.2 Nausea with vomiting, unspecified; I10 Essential (primary) hypertension; I25.10 Atherosclerotic heart disease of native coronary artery without angina pectoris; Z98.890 Other specified postprocedural states; Z88.8 Allergy status to other drugs, medicaments and biological substances; Z79.899 Other long term (current) drug therapy
CPT/HCPCS: 36415 ×2; 74177; 80048; 80076; 81003; 83690; 83735; 84132; 85025; 96361; 96374; 96375; 99285; J2270; J2405; J3480; J7030 ×2; Q9967

== ENCOUNTER 2022-01-30 23:19 | Emergency (ER) | payer OTHER ==
[~2022-01-30] VITALS: Ht 167.6 cm; Wt 69.9 kg
--- NOTE | 2022-01-31 00:05 | NUR ---
BIBS. EPIGASTRIC PAIN X 1 WEEK. PULSATING AGGREVATED BY EATING, DRINKING AND LYING. PATIENT IS AAOX4. PLACED COMFORTABLY IN BED. VITALS CHECKED.
--- NOTE | 2022-01-31 00:09 | NUR ---
SEEN BY DR HOYOS AT BEDSIDE
--- NOTE | 2022-01-31 00:28 | NUR ---
IV CANNULA G18 INSERTED ON LEFT AC. BLOOD DRAWN AND SENT TO LAB.
--- NOTE | 2022-01-31 00:32 | NUR ---
EKG DONE AT BEDSIDE.
[2022-01-31] MEDS ORDERED: CT SWABBABLE VALVE TRANS SET 1 EA INFUS.SET MC ONE (00:49)
[2022-01-31] MEDS ORDERED: IOHEXOL-350 100 ML VIAL IV ONE (00:49)
[2022-01-31] MEDS ORDERED: IV NS 0.9% 250 ML IV ONE (00:49)
[2022-01-31 01:01] LABS: BASOPHILS # (AUTO) 0.1 K/uL (0.0-0.2); BASOPHILS % (AUTO) 0.8 % (0.0-2.0); EOSINOPHILS % (AUTO) 2.5 % (0.0-6.0); HEMATOCRIT 44 % (39-51); HEMOGLOBIN 15.3 g/dL (13.5-17.5); LYMPHOCYTES # (AUTO) 1.5 K/uL (0.8-4.8); LYMPHOCYTES % (AUTO) 20.7 % (20.0-44.0); MEAN CORPUSCULAR HGB CONC 35 g/dl (31.0-36.0); MEAN CORPUSCULAR VOLUME 93 fL (80-96); MONOCYTES # (AUTO) 1.2 K/uL (0.1-1.30); MONOCYTES % (AUTO) 16.3 % (2.0-12.0); NEUTROPHILS # (AUTO) 4.3 K/uL (1.8-8.9); NEUTROPHILS % (AUTO) 59.7 % (43.0-81.0); PLATELET COUNT (AUTO) 191 K/uL (150-450); RED BLOOD CELL COUNT(AUTO) 4.75 MIL/uL (4.5-6.0); WHITE BLOOD COUNT (AUTO) 7.2 K/uL (4.3-11.0)
[2022-01-31 01:19] LABS: CALCIUM, SERUM 8.8 mg/dL (8.5-10.1); CARBON DIOXIDE 31 mmol/L (21-32); CHLORIDE 103 mmol/L (98-107); GLUCOSE 102 mg/dL (74-106); POTASSIUM 3.2 mmol/L (3.5-5.1); SODIUM SERUM 141 mmol/L (136-145); UREA NITROGEN, BLOOD 17 mg/dL (7-18)
[2022-01-31 01:25] LABS: ALANINE AMINOTRANSFERASE 33 U/L (12-78); ALKALINE PHOSPHATASE 82 U/L (46-116); ASPARTATE AMINOTRANSFERASE 17 U/L (15-37); BILIRUBIN,DIRECT 0.1 mg/dL (0.0-0.2); BILIRUBIN,TOTAL 0.6 mg/dL (0.2-1.0)
--- NOTE | 2022-01-31 01:27 | NUR ---
WHEELED PT TO CT SCAN DEPT
[2022-01-31] MEDS ORDERED: DICYCLOMINE HCL 10 MG/5 ML UDC ONE (01:57)
[2022-01-31] MEDS ORDERED: POTASSIUM CHLORIDE 20 MEQ TAB.PRT.SR PO ONE ×2 (01:57→02:00)
[2022-01-31] MEDS ORDERED: DICYCLOMINE HCL 10 MG/5 ML UDC PO ONE (02:00)
[2022-01-31 02:21] LABS: OCCULT BLOOD STOOL NEGATIVE (NEGATIVE)
--- NOTE | 2022-01-31 03:26 | NUR ---
FOLLOWED UP WITH [facility] REGARDING IMAGING. WILL BE READY NEXT PER JATINDER
[2022-01-31] MEDS ORDERED: DICY20TA11 PO (03:27)
[2022-01-31 03:37] VITALS: BP 162/92
--- NOTE | 2022-01-31 03:37 | NUR ---
Patient discharged to home in stable condition. Written and verbal after care instructions given. Patient verbalizes understanding of instruction.IV removed. Catheter intact and site benign. Pressure and 4x4 applied to site. No bleeding noted. Pt ambulatory with a steady gait
[2022-01-31 04:13] LABS: LIPASE 151 U/L (73-393)
[2022-01-31 07:55] LABS: BASOPHILS % (MANUAL) 0 % (0.0-2.0); EOSINOPHILS % (MANUAL) 2 % (0-4); LYMPHOCYTES % (MANUAL) 22 % (16-48); MONOCYTES % (MANUAL) 14 % (0-11.0); NEUTROPHILS % (MANUAL) 62 (42-76)
== END 2022-01-31 03:39 | disposition home or self-care (01) ==
LOC: ER 23:27
DX: R10.13 Epigastric pain (principal); I10 Essential (primary) hypertension; I25.10 Atherosclerotic heart disease of native coronary artery without angina pectoris; Z98.890 Other specified postprocedural states; Z88.8 Allergy status to other drugs, medicaments and biological substances; Z79.899 Other long term (current) drug therapy
CPT/HCPCS: 99285; 74175; 71045; 93005; 85025; 80048; 83690; 80076; 82272; 36415; 84484 ×2; 85730; 85007; J7050; Q9967

== ENCOUNTER 2022-02-27 20:13 | Inpatient (IN) | payer OTHER ==
[~2022-02-27] VITALS: Ht 167.6 cm; Wt 71.2 kg
[~2022-02-27 20:13] MED LIST changes: +DICY20TA11 PO
--- NOTE | 2022-02-27 21:38 | NUR ---
EKG COMPLETED AT BEDSIDE
--- NOTE | 2022-02-27 21:49 | NUR ---
BIBS A/OX4 C/O CHEST TIGHTNESS STARTED AT 1400 NON RADIATING OR SOB AT THIS TIME. PT STATES HAS APPOINTMENT WITH [facility] ON TUESDAY. CHEST TIGHTNESS AND SOB HAS BEEN ON ANF OFF X 1 MONTH
[2022-02-27 22:22] LABS: BASOPHILS # (AUTO) 0.1 K/uL (0.0-0.2); BASOPHILS % (AUTO) 0.7 % (0.0-2.0); EOSINOPHILS % (AUTO) 3.4 % (0.0-6.0); HEMATOCRIT 41 % (39-51); HEMOGLOBIN 14.1 g/dL (13.5-17.5); LYMPHOCYTES # (AUTO) 1.8 K/uL (0.8-4.8); LYMPHOCYTES % (AUTO) 21.4 % (20.0-44.0); MEAN CORPUSCULAR HGB CONC 34 g/dl (31.0-36.0); MEAN CORPUSCULAR VOLUME 91 fL (80-96); MONOCYTES # (AUTO) 0.7 K/uL (0.1-1.30); MONOCYTES % (AUTO) 8.9 % (2.0-12.0); NEUTROPHILS # (AUTO) 5.5 K/uL (1.8-8.9); NEUTROPHILS % (AUTO) 65.6 % (43.0-81.0); PLATELET COUNT (AUTO) 186 K/uL (150-450); WHITE BLOOD COUNT (AUTO) 8.3 K/uL (4.3-11.0)
[2022-02-27 22:23] LABS: CALCIUM, SERUM 8.5 mg/dL (8.5-10.1); CARBON DIOXIDE 30 mmol/L (21-32); CHLORIDE 102 mmol/L (98-107); GLUCOSE 115 mg/dL (74-106); POTASSIUM 3.5 mmol/L (3.5-5.1); SODIUM SERUM 140 mmol/L (136-145); UREA NITROGEN, BLOOD 12 mg/dL (7-18)
[2022-02-27] MEDS ORDERED: ASPIRIN EC 325 MG TABLET.DR PO ONE (22:51)
[2022-02-27] MEDS ORDERED: NITROGLYCERIN PACKET 1 GM PACKET ONE (22:52)
[2022-02-27] MEDS ORDERED: HYDROCODONE/APAP 5/325MG TABLET PO PRN (23:00)
[2022-02-27] MEDS ORDERED: MAG HYDROX/AL HYDROX/SIMETH 30 ML UDC PO PRN (23:00)
[2022-02-27] MEDS ORDERED: MORPHINE SULFATE INJ 2 MG/ML DISP.SYRIN IV PRN (23:00)
[2022-02-27] MEDS ORDERED: Z GUARD REMEDY 4 OZ OINT TP PRN (23:00)
[2022-02-27] MEDS ORDERED: NITROGLYCERIN 0.4 MG/TAB BOTTLE SL PRN (23:00)
[2022-02-27] MEDS ORDERED: ONDANSETRON HCL/PF 4 MG/2 ML VIAL IVP PRN (23:00)
[2022-02-27] MEDS ORDERED: MAGNESIUM HYDROXIDE 30 ML UDC PO PRN (23:00)
[2022-02-27] MEDS ORDERED: NITROGLYCERIN PACKET 1 GM PACKET TD ONE (23:00)
[2022-02-27] MEDS ORDERED: ASPIRIN 325 MG TABLET PO ONE (23:00)
[2022-02-27] MEDS ORDERED: DEXTROSE 50%-WATER 50 ML DISP.SYRIN IV PRN (23:30)
[2022-02-27] MEDS ORDERED: INSULIN REGULAR, HUMAN 100 UNIT/ML 3 ML VIAL SQ PRN (23:30)
--- NOTE | 2022-02-27 23:44 | NUR ---
FACTORY ASSEMBLER OVI Rivero CALLED, VERBAL AUTHORIZATION GIVEN FOR OBSERVATION. REQUESTING CLINICALS TO BE FAXED TO
[2022-02-28] MEDS ORDERED: TEMAZEPAM 15 MG CAPSULE ONE (00:56)
[2022-02-28] MEDS: TEMAZEPAM 15 MG CAPSULE PO PRN ×2 (00:57→22:40)
--- NOTE | 2022-02-28 02:00 | NUR ---
PT VOIDED 300 ML OF URINE IN URINAL
[2022-02-28 04:56] LABS: BASOPHILS % (AUTO) 0.6 % (0.0-2.0); EOSINOPHILS % (AUTO) 3.8 % (0.0-6.0); HEMATOCRIT 41 % (39-51); HEMOGLOBIN 14.4 g/dL (13.5-17.5); LYMPHOCYTES # (AUTO) 2.1 K/uL (0.8-4.8); LYMPHOCYTES % (AUTO) 27.2 % (20.0-44.0); MEAN CORPUSCULAR HGB CONC 35 g/dl (31.0-36.0); MEAN CORPUSCULAR VOLUME 91 fL (80-96); MONOCYTES # (AUTO) 0.7 K/uL (0.1-1.30); MONOCYTES % (AUTO) 9.1 % (2.0-12.0); NEUTROPHILS # (AUTO) 4.6 K/uL (1.8-8.9); NEUTROPHILS % (AUTO) 59.3 % (43.0-81.0); PLATELET COUNT (AUTO) 169 K/uL (150-450); RED BLOOD CELL COUNT(AUTO) 4.53 MIL/uL (4.5-6.0); WHITE BLOOD COUNT (AUTO) 7.7 K/uL (4.3-11.0)
[2022-02-28 05:08] LABS: CALCIUM, SERUM 8.2 mg/dL (8.5-10.1); CREATININE 0.9 mg/dL (0.6-1.3); MAGNESIUM 2.3 mg/dL (1.8-2.4); PHOSPHORUS 3.8 mg/dL (2.5-4.9); POTASSIUM 3.2 mmol/L (3.5-5.1)
[2022-02-28 06:07] LABS: THYROID STIMULATING HORMONE 2.373 uIU/mL (0.358-3.74)
--- NOTE | 2022-02-28 06:07 | NUR ---
PT AMBULATED TO USE THE RESTROOM, DENIED ANY CHEST PAIN OR SOB AT THIS TIME.
[2022-02-28] MEDS ORDERED: PANTOPRAZOLE 40 MG TABLET.DR PO ONE (07:20)
[2022-02-28] MEDS: PANTOPRAZOLE 40 MG TABLET.DR PO SCH (07:24)
[2022-02-28] MEDS: BLOOD SUGAR DIAGNOSTIC 1 EACH STRIP IN SCH ×4 (07:30→22:24)
--- NOTE | 2022-02-28 07:33 | NUR ---
REPORT GIVEN TO REG ORANTES FOR CONTINUATION OF CARE.
[2022-02-28] MEDS ORDERED: CALC-11 PO (08:23)
[2022-02-28] MEDS ORDERED: METO-358 PO (08:23)
[2022-02-28] MEDS ORDERED: GABA300C PO (08:23)
[2022-02-28] MEDS ORDERED: CYAN-51 PO (08:23)
[2022-02-28] MEDS ORDERED: ROSU10TA29 PO (08:23)
[2022-02-28] MEDS ORDERED: INSU100I26 SQ (08:23)
[2022-02-28] MEDS ORDERED: QUET200T84 PO (08:23)
[2022-02-28] MEDS ORDERED: THIA50TA10 PO (08:23)
[2022-02-28] MEDS ORDERED: METF-442 PO (08:23)
[2022-02-28] MEDS ORDERED: CLON0.1T PO (08:48)
[2022-02-28] MEDS ORDERED: INSU100V3 SQ (08:49)
[2022-02-28] MEDS ORDERED: ASPIRIN 81 MG TAB.CHEW ONE (08:55)
[2022-02-28] MEDS: ASPIRIN 81 MG TAB.CHEW PO SCH (09:04)
[2022-02-28] MEDS ORDERED: METOPROLOL SUCCINATE 50 MG TAB.SR.24H PO SCH (10:00)
[2022-02-28] MEDS ORDERED: IOHEXOL-350 100 ML VIAL IV ONE (10:09)
[2022-02-28] MEDS ORDERED: IV NS 0.9% 250 ML IV ONE (10:10)
[2022-02-28] MEDS ORDERED: CLONIDINE HCL 0.1 MG TABLET ONE (11:47)
[2022-02-28] MEDS ORDERED: *INSULIN REGULAR(HUMULIN R)HUM 100 UNIT/ML VIAL SQ PRN (12:00)
[2022-02-28] MEDS ORDERED: DEXTROSE 50%-WATER 50 ML DISP.SYRIN IV PRN (12:00)
[2022-02-28] MEDS ORDERED: INSULIN REGULAR, HUMAN 100 UNIT/ML 3 ML VIAL SQ PRN (12:00)
[2022-02-28] MEDS: CLONIDINE HCL 0.1 MG TABLET PO SCH (12:04)
[2022-02-28] MEDS: BLOOD SUGAR DIAGNOSTIC 1 EACH STRIP VI SCH ×3 (12:08→22:00)
--- NOTE | 2022-02-28 12:08 | NUR ---
blood sugar reading is 112
[2022-02-28] MEDS ORDERED: METOPROLOL TARTRATE INJ 5 MG/5 ML AMPUL ONE (12:16)
[2022-02-28] MEDS ORDERED: NITROGLYCERIN 0.4 MG/TAB BOTTLE ONE (12:17)
[2022-02-28] MEDS ORDERED: NITROGLYCERIN 0.4 MG/TAB BOTTLE SL ONE (12:30)
[2022-02-28] MEDS: METOPROLOL TARTRATE INJ 5 MG/5 ML AMPUL IVP PRN ×2 (12:35→12:40)
--- NOTE | 2022-02-28 12:36 | NUR ---
THE PATIENT IS TAKEN TO CT [facility]
[2022-02-28] MEDS: POTASSIUM CHLORIDE 20 MEQ TAB.PRT.SR PO SCH ×2 (13:00→13:51)
--- NOTE | 2022-02-28 13:03 | NUR ---
THE PATIENT IS BACK FROM CT [facility]
[2022-02-28] MEDS ORDERED: POTASSIUM CHLORIDE 20 MEQ TAB.PRT.SR PO ONE ×2 (13:07→13:50)
--- NOTE | 2022-02-28 15:03 | NUR ---
RAÚL SISTER [phone]
[2022-02-28] MEDS ORDERED: LOSARTAN POTASSIUM 50 MG TABLET ONE (15:48)
[2022-02-28] MEDS: LOSARTAN POTASSIUM 50 MG TABLET PO SCH (15:52)
[2022-02-28] MEDS ORDERED: ATORVASTATIN 40 MG TABLET ONE (17:29)
[2022-02-28] MEDS: ATORVASTATIN 40 MG TABLET PO SCH (17:53)
--- NOTE | 2022-02-28 18:44 | NUR ---
GOING TO 325.1 TELE AFTER SHIFT
--- NOTE | 2022-02-28 19:17 | NUR ---
REPORT GIVEN TO NURSE VILLEGAS FOR JANELL
--- NOTE | 2022-02-28 19:30 | NUR ---
RECEIVED THIS 66/M PATIENT AAOX4. PATIENT CAME WITH CC OF CHEST PAIN. PATIENT -CP AT THE MOMENT. - SOB. PATIENT HAS IV CANNULA G20 ON LEFT AC. VITALS CHECKED AND BEING MONITORED.
--- NOTE | 2022-02-28 19:47 | NUR ---
PT REPORT GIVEN TO ROLANDA WILKINSON.
--- NOTE | 2022-02-28 20:46 | NUR ---
[address]SF[address]
--- NOTE | 2022-02-28 20:53 | NUR ---
transferred to 325 under ACLS
[2022-02-28 21:00] VITALS: BP 132/65
--- NOTE | 2022-02-28 21:45 | NUR ---
BRICK BURNER HEADBAKERY SUPERVISOR NOTES RECEIVED PATIENT FROM ER VIA [facility]. PATIENT IS STABLE AND AMBULATORY. INITIAL VS TAKEN AND RECORDED: TEMP - 98.2, MD - 95, RR -18, O2 SAT - 96%, BP - 132/65. ON ROOM AIR; TOLERATING WELL. ON TELEMETRY MONITORING WITH READING OF SR - 94 BPM. NOT IN ANY FORM OF RESPIRATORY DISTRESS. NO S/SX OF ANY PAIN OR DISCOMFORT AT THIS TIME. WITH IV ACCESS ON LEFT ANTECUBITAL 20g; PATENT, INTACT AND SALINE LOCKED. ABLE TO MAKE NEEDS KNOWN. SKIN ASSESSMENT DONE; WARM TO TOUCH AND INTACT. ALL PERSONAL BELONGINGS ACCOUNTED IN BELONGING FORM; CHECKED AND SIGNED. ORIENTED TO STAFF, ROOM AND UNIT. FALL AND SAFETY MEASURES IMPLEMENTED: CALL LIGHT AND TABLE WITHIN REACH, SIDE RAILS UP X2, BED IN LOWEST LOCKED POSITION. WILL CONTINUE TO MONITOR.
[2022-02-28] MEDS: QUETIAPINE FUMARATE 100 MG TABLET PO SCH (22:00)
[2022-02-28] MEDS ORDERED: TEMAZEPAM 15 MG CAPSULE PO PRN (22:00)
[2022-02-28] MEDS: INSULIN GLARGINE, 100 UNIT/ML CARTRIDGE SQ SCH (22:00)
--- NOTE | 2022-02-28 22:33 | NUR ---
RN NOTE PT REFUSED TO TAKE SEROQUEL.
--- NOTE | 2022-02-28 22:40 | NUR ---
RN NOTES RESTORIL 15 MG PO GIVEN PER PT'S REQUEST.
--- NOTE | 2022-02-28 22:55 | NUR ---
ROLANDA NOTES PT BLOOD SUGAR - 97 MG/DL; WNL. PT REFUSED TO RECEIVE INSULIN LANTUS 0.05 ML. WILL CONTINUE TO MONITOR Addendum: 03/01/22 at 0625 by AUGUSTO FIGUEROA RN BLOOD SUGAR - 97 MG/DL; NO REGULAR INSULIN COVERAGE GIVEN. PT REFUSED TO RECEIVE INSULIN LANTUS. WILL CONTINUE TO MONITOR
[2022-03-01] VITALS (13 sets, daily range): BP systolic 85–177; BP diastolic 46–109
--- NOTE | 2022-03-01 04:40 | NUR ---
RN NOTES ACCU-CHECK: DOUBLE ORDER.
--- NOTE | 2022-03-01 06:10 | NUR ---
RN NOTES BLOOD SUGAR CHECKED - 92 MG/DL; NO INSULIN COVERAGE GIVEN.
--- NOTE | 2022-03-01 07:10 | NUR ---
BAKER SECOND CLOSING NOTES PATIENT IN BED; AWAKE, A/O X4. STABLE ON ROOM AIR. BREATHING EVEN AND NONLABORED. NOT IN ANY FORM OF RESPIRATORY DISTRESS. ON TELE MONITORING WITH READING OF SINUS BRADYCARDIA HR-55 BPM. DENIES ANY PAIN OR DISCOMFORT AT THIS TIME. LEFT ANTECUBITAL 20g; PATENT, INTACT AND SALINE LOCKED. ALL NEEDS MET. ALL DUE MEDS GIVEN ORDERED. FALL AND SAFETY MEASURES IN PLACE: CALL LIGHT AND TABLE WITHIN REACH, SIDE RAILS UP X2, BED IN LOWEST LOCKED POSITION. ENDORSED TO ROLANDA GRANADOS FOR JANELL.
[2022-03-01 07:37] LABS: BASOPHILS % (AUTO) 0.3 % (0.0-2.0); EOSINOPHILS % (AUTO) 3.7 % (0.0-6.0); HEMATOCRIT 40 % (39-51); HEMOGLOBIN 14.3 g/dL (13.5-17.5); LYMPHOCYTES # (AUTO) 1.4 K/uL (0.8-4.8); LYMPHOCYTES % (AUTO) 18.5 % (20.0-44.0); MEAN CORPUSCULAR HGB CONC 36 g/dl (31.0-36.0); MEAN CORPUSCULAR VOLUME 90 fL (80-96); MONOCYTES # (AUTO) 0.7 K/uL (0.1-1.30); NEUTROPHILS # (AUTO) 5.1 K/uL (1.8-8.9); NEUTROPHILS % (AUTO) 68.5 % (43.0-81.0); PLATELET COUNT (AUTO) 160 K/uL (150-450); RED BLOOD CELL COUNT(AUTO) 4.46 MIL/uL (4.5-6.0); WHITE BLOOD COUNT (AUTO) 7.5 K/uL (4.3-11.0)
--- NOTE | 2022-03-01 07:40 | NUR ---
AGRICULTURAL REAL ESTATE AGENT OPENING NOTE PATIENT RECEIVED IN BED INTERMITTENTLY SLEEPING. A/O X4. NO C/O OF CHEST PAIN, SOB OR OTHER RESPIRATORY DISTRESS DURING ASSESSMENT. CONTINUES TO REFUSE OXYGEN SUPPLEMENTATION. IV ACCESS TO LAC INTACT AND PATENT, NO S/SX OF INFILTRATION. SAFETY MEASURES INTACT WITH BED IN LOWEST POSITION AND LOCKED. SIDERAIL UPX2, CALL LIGHT WITHIN REACH. WILL CONTINUE TO MONITOR.
[2022-03-01 08:14] LABS: CALCIUM, SERUM 8.2 mg/dL (8.5-10.1); CREATININE 0.9 mg/dL (0.6-1.3); POTASSIUM 3.4 mmol/L (3.5-5.1)
[2022-03-01] MEDS ORDERED: LOSARTAN POTASSIUM 50 MG TABLET PO SCH (09:00)
[2022-03-01] MEDS: ASPIRIN 81 MG TAB.CHEW PO SCH (09:00)
[2022-03-01] MEDS: CLONIDINE HCL 0.1 MG TABLET PO SCH (09:23)
[2022-03-01] MEDS: METOPROLOL SUCCINATE 50 MG TAB.SR.24H PO SCH (09:24)
[2022-03-01] MEDS: LOSARTAN POTASSIUM 50 MG TABLET PO SCH (09:24)
[2022-03-01] MEDS: THIAMINE HCL 100 MG TABLET PO SCH (09:25)
[2022-03-01] MEDS: CALCIUM CARB 600MG /VIT D 1 EACH TABLET PO SCH (09:25)
[2022-03-01] MEDS: CYANOCOBALAMIN 500 MCG TABLET PO SCH (09:26)
[2022-03-01] MEDS: PANTOPRAZOLE 40 MG TABLET.DR PO SCH (09:26)
[2022-03-01] MEDS: BLOOD SUGAR DIAGNOSTIC 1 EACH STRIP IN SCH ×4 (09:29→22:03)
[2022-03-01] MEDS: BLOOD SUGAR DIAGNOSTIC 1 EACH STRIP VI SCH ×4 (09:50→22:04)
[2022-03-01 10:00] LABS: BASOPHILS % (AUTO) 0.5 % (0.0-2.0); EOSINOPHILS % (AUTO) 2.5 % (0.0-6.0); HEMATOCRIT 42 % (39-51); HEMOGLOBIN 15.2 g/dL (13.5-17.5); LYMPHOCYTES # (AUTO) 1.6 K/uL (0.8-4.8); MEAN CORPUSCULAR HGB CONC 36 g/dl (31.0-36.0); MEAN CORPUSCULAR VOLUME 91 fL (80-96); MONOCYTES # (AUTO) 0.6 K/uL (0.1-1.30); MONOCYTES % (AUTO) 7.6 % (2.0-12.0); NEUTROPHILS # (AUTO) 5.6 K/uL (1.8-8.9); NEUTROPHILS % (AUTO) 69.4 % (43.0-81.0); PLATELET COUNT (AUTO) 169 K/uL (150-450); RED BLOOD CELL COUNT(AUTO) 4.61 MIL/uL (4.5-6.0)
[2022-03-01] MEDS ORDERED: POTASSIUM CHLORIDE 20 MEQ TAB.PRT.SR PO SCH (10:00)
[2022-03-01 10:07] LABS: CALCIUM, SERUM 8.3 mg/dL (8.5-10.1); POTASSIUM 3.5 mmol/L (3.5-5.1)
--- NOTE | 2022-03-01 15:00 | NUR ---
RN NOTE PATIENT LEFT UNIT FOR SCHEDULED SURGICAL PROCEDURE @ 1500. PATIENT VITALS STABLE 153/74 52 99%-ROOM AIR. ABLE TO VERBALIZE ALL NEEDS AND AMBULATE TO/FROM BATHROOM AND THROUGHOUT BEDROOM. IV ACCESS TO LAC REMAINS PATENT AND INTACT. WILL CONTINUE TO MONITOR.
[2022-03-01] MEDS ORDERED: LIDOCAINE 1% INJ 50 ML MDV IJ ONE (15:11)
[2022-03-01] MEDS ORDERED: IV NS 0.9% 1,000 ML ONE (15:11)
[2022-03-01] MEDS ORDERED: IV SET PRIMARY PUMP SET 1 EA INFUS.SET MC ONE (15:11)
[2022-03-01] MEDS ORDERED: IODIXANOL 150 ML IV ONE (15:11)
[2022-03-01] MEDS ORDERED: MIDAZOLAM HCL 2 MG/2ML VIAL ONE (15:12)
[2022-03-01] MEDS ORDERED: FENTANYL PF 100MCG/2ML AMPUL ONE (15:12)
[2022-03-01] MEDS ORDERED: IODIXANOL 320MG/ML 50 ML IV ONE (15:52)
[2022-03-01] MEDS ORDERED: HEPARIN SODIUM, PORCINE 5000 UNITS/1 ML VIAL ONE (15:53)
[2022-03-01] MEDS ORDERED: HEPARIN SODIUM, PORCINE 1,000 UNIT/ML VIAL ONE (15:53)
[2022-03-01] MEDS ORDERED: IODIXANOL 320MG/ML 100 ML IV ONE (16:08)
[2022-03-01] MEDS ORDERED: TICAGRELOR 90 MG TABLET PO ONE (16:31)
[2022-03-01] MEDS ORDERED: ASPIRIN 81 MG TAB.CHEW ONE (16:33)
[2022-03-01] MEDS: CLONIDINE HCL 0.1 MG TABLET PO PRN (18:31)
[2022-03-01] MEDS ORDERED: hydrALAZINE HCL IV 20 MG VIAL IV PRN (20:00)
--- NOTE | 2022-03-01 20:00 | NUR ---
CELL INSPECTOR. TR BAND REMOVED AT 1999. NO COMPLICATION NOTED. WILL MONITOR BLEEDING
[2022-03-01] MEDS ORDERED: IV 1/2NS 1000 ML 500 ML IV PRN (21:00)
[2022-03-01] MEDS: ATORVASTATIN 40 MG TABLET PO SCH (21:11)
[2022-03-01] MEDS: QUETIAPINE FUMARATE 100 MG TABLET PO SCH ×2 (21:12→22:00)
[2022-03-01] MEDS: TICAGRELOR 90 MG TABLET PO SCH (21:13)
[2022-03-01] MEDS: TEMAZEPAM 15 MG CAPSULE PO PRN (21:32)
--- NOTE | 2022-03-01 22:00 | NUR ---
UTILITY TECHNICIAN. RECEIVED THE PT REST IN BED. AWAKE, ALERT, FOLLOW COMMANDS. SUMMER CLERK SHOWING NSR. IV LT HAND 20G. SALINE LOCK. PT C/O HEAD ACHE TYLENOL GIVEN PER ORDER.RT RADIAL TR BAND REMOVED PER ORDER. NO COMPLICATION NOTED. HOB ELEVATED. AFEBRILE. WILL CONTINUE TO MONITOR VITALS.
--- NOTE | 2022-03-01 22:01 | NUR ---
sustainable agriculture faculty. elma pulled out from [facility] . opened the meds and scanned. pt refused.
[2022-03-01] MEDS: ACETAMINOPHEN 325 MG TABLET PO PRN (22:05)
[2022-03-01] MEDS: INSULIN GLARGINE, 100 UNIT/ML CARTRIDGE SQ SCH (22:24)
[2022-03-01] MEDS ORDERED: INSULIN GLARGINE, 100 UNIT/ML CARTRIDGE SQ ONE (22:35)
[2022-03-02] VITALS (19 sets, daily range): BP systolic 88–165; BP diastolic 44–80
--- NOTE | 2022-03-02 06:21 | NUR ---
DIRECTOR INTERNAL COMMUNICATIONS. AM CARE GIVEN. PT SLEPT WELL DURING NIGHT.VITALS STABLE.
--- NOTE | 2022-03-02 07:30 | NUR ---
RN OPENING NOTE PT OBSERVED IN BED SLEEPING. PT ENDORSED A/0X4 PT IS ON RA AT THIS TIME TOLERATING WELL WITH NO SIGNS OF LABORED BREATHING OR DISTRESS O2 SAT 97%. PT IS CONTINENT. IV ACCESS L AC NO FLUIDS INFUSING AT THIS TIME. BED IS LOCKED IN LOWEST POSITION X 2 BEDRAILS UP, CALL AWAD IS WITHIN REACH AND ALL HOSPITAL SAFETY PROTOCOLS ARE IN PLACE. WILL CONTINUE TO MONITOR THIS SHIFT.
[2022-03-02] MEDS: BLOOD SUGAR DIAGNOSTIC 1 EACH STRIP VI SCH ×2 (08:32→12:39)
[2022-03-02] MEDS: CALCIUM CARB 600MG /VIT D 1 EACH TABLET PO SCH (08:34)
[2022-03-02] MEDS: PANTOPRAZOLE 40 MG TABLET.DR PO SCH (08:34)
[2022-03-02] MEDS: METOPROLOL SUCCINATE 50 MG TAB.SR.24H PO SCH (08:34)
[2022-03-02] MEDS: CLONIDINE HCL 0.1 MG TABLET PO SCH (08:34)
[2022-03-02] MEDS: THIAMINE HCL 100 MG TABLET PO SCH (08:35)
[2022-03-02] MEDS: LOSARTAN POTASSIUM 50 MG TABLET PO SCH (08:35)
[2022-03-02] MEDS: CYANOCOBALAMIN 500 MCG TABLET PO SCH (08:35)
[2022-03-02] MEDS: TICAGRELOR 90 MG TABLET PO SCH (08:38)
[2022-03-02] MEDS: ACETAMINOPHEN 325 MG TABLET PO PRN (08:57)
[2022-03-02] MEDS ORDERED: ASPIRIN EC 81 MG TABLET.DR PO SCH (09:00)
[2022-03-02] MEDS ORDERED: TICA90TA PO (11:32)
[2022-03-02] MEDS ORDERED: ASPI-1420 PO (11:32)
[2022-03-02] MEDS: CLONIDINE HCL 0.1 MG TABLET PO PRN (14:07)
--- NOTE | 2022-03-02 14:07 | NUR ---
RN NOTE: PRN CATAPRES PT BP 165/81. PRN CATAPRES GIVEN 0.1MG. WILL REASSESS.
--- NOTE | 2022-03-02 15:10 | NUR ---
RN NOTE: BP PT BP IS 149/71 AFTER PRN CATAPRES. WILL CONTINUE TO MONITOR AND GET PT READY FOR DC.
--- NOTE | 2022-03-02 16:05 | NUR ---
DC NOTES PT IS IN STABLE CONDITION AT THIS TIME AND DCD TO HOME VIA PRIVATE CAR. DC INSTRUCTIONS GIVEN AND EXPLAINED TO PT; PT VERBALIZED I UNDERSTAND AND SIGNED DC FORMS. PT UNDERSTANDS TO CONTACT DR. LOZADA WITHIN 1 WEEK OF DISCHARGE AND CONTACT INFORMATION PROVIDED. ALL PAPERWORK COMPLETED AND SIGNED AND DC PACKET PROVIDED. PT WAS DCD WITH ALL BELONGINGS AND PT SIGNED BELONGING FORM. L UA IV REMOVED; CATH TIP COMPLETE AND INTACT; NO COMPLICATIONS NOTED.
[2022-03-06] MEDS ORDERED: TEMA15CA5 PO (11:36)
[2022-03-06] MEDS ORDERED: VALS80TA31 PO (11:36)
== END 2022-03-02 16:10 | disposition home or self-care (01) | DRG 247 ==
LOC: ER 20:15 → TRANSITION 02-28 00:33 → TELE 02-28 19:22 → ICU 03-01 16:05
PROVIDERS: ADMIT Nurse Practitioner Acute Care; ATTEND Nurse Practitioner Acute Care
PROC: 027035Z Dilation of Coronary Artery, One Artery with Two Drug-eluting Intraluminal Devices, Percutaneous Approach (ICD-10-PCS; principal; 2022-03-01)
PROC: 4A023N7 Measurement of Cardiac Sampling and Pressure, Left Heart, Percutaneous Approach (ICD-10-PCS; 2022-03-01)
PROC: B211YZZ Fluoroscopy of Multiple Coronary Arteries using Other Contrast (ICD-10-PCS; 2022-03-01)
DX: I25.10 Atherosclerotic heart disease of native coronary artery without angina pectoris (principal); E87.1 Hypo-osmolality and hyponatremia; D68.59 Other primary thrombophilia; I24.9 Acute ischemic heart disease, unspecified; I16.0 Hypertensive urgency; E11.9 Type 2 diabetes mellitus without complications; E87.6 Hypokalemia; F32.A Depression, unspecified; N40.0 Benign prostatic hyperplasia without lower urinary tract symptoms; Z79.82 Long term (current) use of aspirin; R94.31 Abnormal electrocardiogram [ECG] [EKG]; Z79.4 Long term (current) use of insulin; I10 Essential (primary) hypertension
CPT/HCPCS: 36415; 71045-TC; 75574; 80048-TC; 80061-TC; 82962-TC; 83735-TC; 83880; 84100-TC; 84443-TC; 84484-TC; 85025-TC; 85347; 85610-TC; 87081-TC; 93307-TC; C1725; C1769; C1887; C9601; C9803; G0378; G0500; J0360; J1644; J1815; J2250; J2270; J2405; J3010; J3490; J7030; J7050; Q9967

== ENCOUNTER 2022-03-05 09:12 | Inpatient (IN) | payer OTHER ==
[~2022-03-05] VITALS: Ht 167.6 cm; Wt 73.5 kg
[~2022-03-05 09:12] MED LIST changes: -AMLO-213 PO; +ASPI-1420 PO; -AZIT500T PO; +CALC-11 PO; -CHOL100044 PO; +CLON0.1T PO; -CLOT15CR35 TP; +CYAN-51 PO; -DICY20TA11 PO; -DOXY100C2 PO; -ERGO500014 PO; -FINA5TAB11 PO; -HYDR-4275 PO; +INSU100I26 SQ; +INSU100V3 SQ; +METO-358 PO; -QUET100T PO; +QUET200T84 PO; +ROSU10TA29 PO; +THIA50TA10 PO; +TICA90TA PO
--- NOTE | 2022-03-05 10:05 | NUR ---
COVID ANTIGEN SWAB DONE AND SENT TO THE LAB
[2022-03-05 10:08] LABS: BASOPHILS % (AUTO) 0.3 % (0.0-2.0); EOSINOPHILS % (AUTO) 1.8 % (0.0-6.0); HEMATOCRIT 42 % (39-51); HEMOGLOBIN 14.5 g/dL (13.5-17.5); LYMPHOCYTES % (AUTO) 10.8 % (20.0-44.0); MEAN CORPUSCULAR HGB CONC 35 g/dl (31.0-36.0); MEAN CORPUSCULAR VOLUME 91 fL (80-96); MONOCYTES # (AUTO) 0.7 K/uL (0.1-1.30); MONOCYTES % (AUTO) 8.1 % (2.0-12.0); PLATELET COUNT (AUTO) 214 K/uL (150-450); WHITE BLOOD COUNT (AUTO) 8.9 K/uL (4.3-11.0)
[2022-03-05 10:21] LABS: CALCIUM, SERUM 9.1 mg/dL (8.5-10.1); CARBON DIOXIDE 29 mmol/L (21-32); CHLORIDE 99 mmol/L (98-107); GLUCOSE 127 mg/dL (74-106); POTASSIUM 3.5 mmol/L (3.5-5.1); SODIUM SERUM 134 mmol/L (136-145); UREA NITROGEN, BLOOD 10 mg/dL (7-18)
[2022-03-05] MEDS ORDERED: ASPIRIN 81 MG TAB.CHEW PO ONE (11:30)
--- NOTE | 2022-03-05 11:34 | NUR ---
ROOM 312-2
[2022-03-05] MEDS ORDERED: ASPIRIN 81 MG TAB.CHEW ONE (11:38)
--- NOTE | 2022-03-05 11:39 | NUR ---
REPORT GIVEN TO NURSE BAKER FOR JANELL
--- NOTE | 2022-03-05 12:24 | NUR ---
PT TRASNPORT TO 3W TELE FLOOR WITH ACLS PROTOCOLS IN PLACE
--- NOTE | 2022-03-05 12:25 | NUR ---
PT TRANSFERRED TO 312-2 VIA CARLY PAULINO PROTOCOL. WARM HANDOFF GIVEN TO RN ASSIGNED.
[2022-03-05] MEDS ORDERED: ONDANSETRON HCL/PF 4 MG/2 ML VIAL IVP PRN (13:30)
[2022-03-05] MEDS ORDERED: MAG HYDROX/AL HYDROX/SIMETH 30 ML UDC PO PRN (13:30)
[2022-03-05] MEDS ORDERED: ACETAMINOPHEN 325 MG TABLET PO PRN (13:30)
[2022-03-05] MEDS ORDERED: Z GUARD REMEDY 4 OZ OINT TP PRN (13:30)
[2022-03-05] MEDS ORDERED: INSULIN REGULAR, HUMAN 100 UNIT/ML 3 ML VIAL SQ PRN (13:30)
--- NOTE | 2022-03-05 14:00 | NUR ---
ASPHALT ENGINEER NOTES ADMITTED THIS 66 Y/O MALE PATIENT FROM [facility] @1230 TRANSPORTED VIA GURNEY, ACCOMPANIED BY ROLANDA HARTLEY. PATIENT IS ALERT AND ORIENTED X4, VERBALLY RESPONSIVE, NO SIGNS OF ACUTE DISTRESS NOTED. STABLE IN ROOM AIR, NO SOB NOTED, BREATHING EVEN AND UNLABORED. NOTED WITH IV ACCESS ON LEFT UPPER ARM #20G, INTACT AND PATENT SALINE LOCKED. PLACED PATIENT ON CALENDERING SUPERVISOR, SHOWING SINUS RHYTHM, HR @69. DENIES ANY CHEST PAIN OR ANY DISCOMFORT AT THIS TIME. BODY ASSESSMENT DONE. SKIN GENERALLY INTACT, NOTED WITH BRUISE ON RIGHT FOREARM. ROUTINE ADMISSION CARE PROVIDED. VITAL SIGNS TAKEN. SAFETY MEASURE IN PLACE. BED IN LOWEST AND LOCKED POSITION, SIDE RAILS UP X2, CALL LIGHT PLACED WITHIN EASY REACH. WILL CONTINUE TO MONITOR PATIENT.
[2022-03-05 14:12] VITALS: BP 174/98
[2022-03-05] MEDS ORDERED: hydrALAZINE HCL IV 20 MG VIAL IV PRN (15:00)
[2022-03-05] MEDS ORDERED: METOCLOPRAMIDE HCL IV ONE (15:00)
[2022-03-05] MEDS ORDERED: DIPHENHYDRAMINE HCL IV ONE (15:00)
[2022-03-05] MEDS ORDERED: D5W IV ONE (15:00)
[2022-03-05 16:48] VITALS: BP 160/84
[2022-03-05] MEDS: BLOOD SUGAR DIAGNOSTIC 1 EACH STRIP IN SCH ×2 (16:52→22:01)
[2022-03-05] MEDS ORDERED: DEXTROSE 50%-WATER 50 ML DISP.SYRIN IV PRN (17:30)
[2022-03-05] MEDS: TICAGRELOR 90 MG TABLET PO SCH (17:38)
[2022-03-05] MEDS ORDERED: ATORVASTATIN 40 MG TABLET PO SCH (18:00)
--- NOTE | 2022-03-05 18:44 | NUR ---
RN CLOSING NOTE PATIENT IN BED, ASLEEP, EASILY AROUSED, NO SIGNS OF ACUTE DISTRESS NOTED. IV ACCESS ON LEFT FORE ARM #20G, INTACT AND PATENT. ON TELE MONITOR SHOWING SINUS RHYTHM, HR @63. DENIES ANY CHEST PAIN AT THIS TIME. SAFETY MEASURE IN PLACE. BED IN LOWEST AND LOCKED POSITION, SIDE RAILS UP X2, CALL LIGHT PLACED WITHIN EASY REACH. WILL ENDORSE TO NEXT SHIFT FOR CONTINUITY OF CARE.
--- NOTE | 2022-03-05 19:20 | NUR ---
TELE/RN OPENING NOTE RECEIVED PATIENT RESTING IN BED. AWAKE, ALERT AND ORIENTED X 4. ABLE TO MAKE NEEDS KNOWN. DENIES PAIN AT THIS TIME. CONTINUES ON ROOM AIR WITH NO S/SX OF RESPIRATORY DISTRESS NOTED. IV ACCESS TO LEFT UPPER ARM #20G INTACT, PATENT AND SALINE LOCKED. CONTINUES ON TELE MONITOR WITH CURRENT READING SR. PATIENT IS AMBULATORY WITH STEADY GAIT. CALL LIGHT WITHIN REACH. ASPIRATION, FALL AND SAFETY PRECAUTIONS MAINTAINED. ALL NEEDS ATTENDED TO AT THIS TIME.
[2022-03-05 20:00] VITALS: BP 122/72
--- NOTE | 2022-03-05 20:30 | NUR ---
TELE/RN NOTE RECEIVED CALL FROM LAB WITH CRITICAL LAB VALUE TROPONIN 162. PATIENT DENIES CHEST PAIN/SOB. NOTIFIED APPLICATION CONSULTANT SHANIKA NEWMAN. NO NEW ORDERS AT THIS TIME.
[2022-03-05] MEDS ORDERED: MAGNESIUM HYDROXIDE 30 ML UDC PO PRN (22:00)
[2022-03-05] MEDS ORDERED: INSULIN GLARGINE, 100 UNIT/ML CARTRIDGE SQ SCH (22:00)
[2022-03-05] MEDS ORDERED: TRAZODONE 50 MG TABLET PO SCH (22:00)
[2022-03-06] VITALS: BP 164/86
[2022-03-06 04:00] VITALS: BP 141/64
--- NOTE | 2022-03-06 06:20 | NUR ---
TELE/RN CLOSING NOTE PATIENT CURRENTLY RESTING IN BED. AWAKE, ALERT AND ORIENTED X 4. ABLE TO MAKE NEEDS KNOWN. DENIES PAIN AT THIS TIME. CONTINUES ON ROOM AIR WITH NO S/SX OF RESPIRATORY DISTRESS NOTED. IV ACCESS TO LEFT UPPER ARM #20G INTACT, PATENT AND SALINE LOCKED. CONTINUES ON TELE MONITOR WITH CURRENT READING SR. PATIENT IS AMBULATORY WITH STEADY GAIT. CALL LIGHT WITHIN REACH. ASPIRATION, FALL AND SAFETY PRECAUTIONS MAINTAINED. WILL ENDORSE PLAN OF CARE TO ONCOMING SHIFT RN.
[2022-03-06 06:44] LABS: BASOPHILS % (AUTO) 0.3 % (0.0-2.0); EOSINOPHILS % (AUTO) 1.7 % (0.0-6.0); HEMATOCRIT 40 % (39-51); LYMPHOCYTES # (AUTO) 1.5 K/uL (0.8-4.8); LYMPHOCYTES % (AUTO) 17.1 % (20.0-44.0); MEAN CORPUSCULAR HGB CONC 35 g/dl (31.0-36.0); MEAN CORPUSCULAR VOLUME 91 fL (80-96); MONOCYTES # (AUTO) 0.8 K/uL (0.1-1.30); MONOCYTES % (AUTO) 8.5 % (2.0-12.0); NEUTROPHILS # (AUTO) 6.5 K/uL (1.8-8.9); NEUTROPHILS % (AUTO) 72.4 % (43.0-81.0); PLATELET COUNT (AUTO) 212 K/uL (150-450); RED BLOOD CELL COUNT(AUTO) 4.42 MIL/uL (4.5-6.0); WHITE BLOOD COUNT (AUTO) 8.9 K/uL (4.3-11.0)
[2022-03-06 07:13] LABS: CALCIUM, SERUM 8.9 mg/dL (8.5-10.1); CREATININE 0.9 mg/dL (0.6-1.3); MAGNESIUM 2.3 mg/dL (1.8-2.4); POTASSIUM 3.9 mmol/L (3.5-5.1)
[2022-03-06] MEDS ORDERED: PANTOPRAZOLE 40 MG TABLET.DR PO SCH (07:30)
[2022-03-06] MEDS: BLOOD SUGAR DIAGNOSTIC 1 EACH STRIP IN SCH (07:35)
[2022-03-06 08:00] VITALS: BP 182/104
--- NOTE | 2022-03-06 08:00 | NUR ---
RN OPENING NOTE PATIENT RECEIVED IN BED, AO X 4, ABLE TO RESPONDS ALL STIMULI. DENIES CHEST PAIN AT THIS TIME. IN NO ACUTE DISTRESS NOTED. RESPIRATORY EVEN AND UNLABORED ON ROOM AIR. SKIN IS WARM TO TOUCH, KEEP CLEAN/DRY. KEPT ELEVATED HOB FOR ENSURE AIRWAY AND ASPIRATION PRECAUTION, ALSO LOWEST POSITION OF THE BED, S/R UP X 2, BED ALARM IS ON AT ALL THE TIMES. ALL SAFETY PRECAUTION APPLIED. CALL LIGHT WITHIN REACH, WILL CONTINUE TO MONITOR.
[2022-03-06] MEDS: TICAGRELOR 90 MG TABLET PO SCH (08:25)
[2022-03-06 09:00] VITALS: BP 90/54
[2022-03-06] MEDS ORDERED: CLONIDINE HCL 0.1 MG TABLET PO SCH (09:00)
[2022-03-06] MEDS ORDERED: METOPROLOL SUCCINATE 50 MG TAB.SR.24H PO SCH (09:00)
[2022-03-06] MEDS ORDERED: LOSARTAN POTASSIUM 50 MG TABLET PO SCH (09:00)
[2022-03-06] MEDS ORDERED: CYANOCOBALAMIN 500 MCG TABLET PO SCH (09:00)
[2022-03-06] MEDS ORDERED: ATORVASTATIN 10 MG TABLET PO SCH (09:00)
[2022-03-06] MEDS ORDERED: [UNRECOGNIZED DRUG - OTHER] PO SCH (09:00)
[2022-03-06] MEDS ORDERED: VITAMIN D3 PO SCH (09:00)
[2022-03-06] MEDS ORDERED: VALSARTAN 80 MG TABLET PO SCH (09:00)
[2022-03-06] MEDS ORDERED: CALCIUM CARB 250MG /VITAMIN D 1 UDTAB PO SCH (09:00)
[2022-03-06] MEDS ORDERED: ASPIRIN EC 81 MG TABLET.DR PO SCH (09:00)
[2022-03-06] MEDS ORDERED: THIAMINE HCL 100 MG TABLET PO SCH (09:00)
[2022-03-06] MEDS ORDERED: CALCIUM CARBONATE PO SCH (09:00)
[2022-03-06] MEDS ORDERED: VALS80TA31 PO (11:36)
[2022-03-06] MEDS ORDERED: TEMA15CA5 PO (11:36)
--- NOTE | 2022-03-06 12:30 | NUR ---
PATIENT DISCHARGE TO HOME AND GIVEN DISCHARGE INSTRUCTION INCLUDE EYELETTER NEW MEDICATIONS AND SIDE EFFECTS. RETUNED BRILINTA 90 MG COUNTED WITH PATIENT AND 173 TABS. PATIENT LEFT FACILITY ESCORTED BY STAFF TO THE PRIVATE CAR. RECHECKED BP IS 147/73, HR-68.
== END 2022-03-06 13:15 | disposition home or self-care (01) | DRG 281 ==
LOC: ER 09:13 → TELE 11:55 → MED 03-06 11:02
PROVIDERS: ADMIT Nurse Practitioner Family; ATTEND Nurse Practitioner Family
DX: I21.4 Non-ST elevation (NSTEMI) myocardial infarction (principal); E87.1 Hypo-osmolality and hyponatremia; I10 Essential (primary) hypertension; G43.909 Migraine, unspecified, not intractable, without status migrainosus; I25.10 Atherosclerotic heart disease of native coronary artery without angina pectoris; F32.A Depression, unspecified; E78.5 Hyperlipidemia, unspecified; Z79.4 Long term (current) use of insulin; Z79.82 Long term (current) use of aspirin; N40.0 Benign prostatic hyperplasia without lower urinary tract symptoms; E11.9 Type 2 diabetes mellitus without complications; Z95.5 Presence of coronary angioplasty implant and graft; Z20.822 Contact with and (suspected) exposure to COVID-19; G47.00 Insomnia, unspecified
CPT/HCPCS: 36415; 70450-TC; 71045-TC; 80048-TC; 80061-TC; 82962-TC; 83735-TC; 84484-TC; 85025-TC; 87081-TC; C9803; G0378; J0360; J1200; J1815; J2765; J7050; J7060

== ENCOUNTER 2022-04-29 18:57 | Inpatient (IN) | payer OTHER ==
[~2022-04-29] VITALS: Ht 165.1 cm; Wt 81.6 kg
[~2022-04-29 18:57] MED LIST changes: -LOSA50TA39 PO; +TEMA15CA5 PO; +VALS80TA31 PO
--- NOTE | 2022-04-29 19:14 | NUR ---
PHLEB AT BEDSIDE FOR BLOOD DRAW
--- NOTE | 2022-04-29 19:35 | NUR ---
RECEIVED THIS 66YO/M CAME WITH CC OF STABBING PAIN IN THE LEFT CHEST WHEN EXERTING EFFORT. PT IS AAOX4. -SOB, NOT IN CP DISTRESS. ATTACHED TO MONITOR. VITALS CHECKED.
[2022-04-29 19:45] LABS: CARBON DIOXIDE 33 mmol/L (21-32); CHLORIDE 87 mmol/L (98-107); CREATININE 0.9 mg/dL (0.6-1.3); GLUCOSE 139 mg/dL (74-106); SODIUM SERUM 126 mmol/L (136-145); UREA NITROGEN, BLOOD 9 mg/dL (7-18)
[2022-04-29 19:47] LABS: POTASSIUM 2.6 mmol/L (3.5-5.1)
--- NOTE | 2022-04-29 19:49 | NUR ---
CRITICAL LAB: POTASSIUM 2.6 DR SHANKAR NOTIFIED
[2022-04-29] MEDS ORDERED: IV NS 0.9% 1,000 ML IV ONE (20:00)
[2022-04-29] MEDS ORDERED: POTASSIUM CHLORIDE 20 MEQ TAB.PRT.SR PO ONE ×2 (20:00→20:11)
--- NOTE | 2022-04-29 20:04 | NUR ---
COVID ANTIGEN SWAB COLLECTED AND SENT TO LAB
[2022-04-29 20:05] LABS: BASOPHILS % (AUTO) 0.3 % (0.0-2.0); EOSINOPHILS % (AUTO) 2.1 % (0.0-6.0); HEMATOCRIT 38 % (39-51); HEMOGLOBIN 13.6 g/dL (13.5-17.5); LYMPHOCYTES # (AUTO) 1.6 K/uL (0.8-4.8); LYMPHOCYTES % (AUTO) 15.1 % (20.0-44.0); MEAN CORPUSCULAR HGB CONC 36 g/dl (31.0-36.0); MEAN CORPUSCULAR VOLUME 91 fL (80-96); MONOCYTES % (AUTO) 9.8 % (2.0-12.0); NEUTROPHILS # (AUTO) 7.5 K/uL (1.8-8.9); NEUTROPHILS % (AUTO) 72.7 % (43.0-81.0); PLATELET COUNT (AUTO) 351 K/uL (150-450); RED BLOOD CELL COUNT(AUTO) 4.23 MIL/uL (4.5-6.0); WHITE BLOOD COUNT (AUTO) 10.4 K/uL (4.3-11.0)
[2022-04-29] MEDS ORDERED: POTASSIUM CL. PREMIX PERIPHER. 50 ML ONE ×3 (20:10→22:23)
[2022-04-29] MEDS: POTASSIUM CL. PREMIX PERIPHER. 50 ML IV SCH ×3 (20:28→22:27)
--- NOTE | 2022-04-29 20:28 | NUR ---
1ST BAG OF KCL INF STARTED ON LEFT AC G20
--- NOTE | 2022-04-29 21:03 | NUR ---
RECEIVED CALL FROM [facility]. UPDATES GIVEN TO YUDY
--- NOTE | 2022-04-29 21:32 | NUR ---
2ND BAG OF KCL INF STARTED ON LEFT AC G18.
--- NOTE | 2022-04-29 21:35 | NUR ---
SEEN BY SHANIKA SCHAFFER AT BEDSIDE
[2022-04-29] MEDS ORDERED: MAGNESIUM HYDROXIDE 30 ML UDC PO PRN (22:00)
[2022-04-29] MEDS ORDERED: Z GUARD REMEDY 4 OZ OINT TP PRN (22:00)
[2022-04-29] MEDS ORDERED: ACETAMINOPHEN 325 MG TABLET PO PRN (22:00)
[2022-04-29] MEDS ORDERED: HYDROCODONE/APAP 5/325MG TABLET PO PRN (22:00)
[2022-04-29] MEDS ORDERED: ONDANSETRON HCL/PF 4 MG/2 ML VIAL IVP PRN (22:00)
--- NOTE | 2022-04-29 22:27 | NUR ---
3RD BAG OF KCL INFUSION STARTED.
--- NOTE | 2022-04-29 22:33 | NUR ---
WITH ONGOING 2DECHO AT BEDSIDE
--- NOTE | 2022-04-29 22:46 | NUR ---
TELE 315-2
--- NOTE | 2022-04-29 23:00 | NUR ---
REPORT GIVEN TO ROLANDA BHARDWAJ
--- NOTE | 2022-04-29 23:10 | NUR ---
RN NOTES; RECEIVED PATIENT FROM ER IN RM 315-2 AAOX4 ABLE TO MAKE NEEDS KNOWN,BONY WELL ON RM AIR NO SIGN SOB/DISTRESS NOTED,NO COMPLAINED OF PAIN/DISCOMFORT AT THIS TIME,IV ACCESS ON LAC 18G PATENT AND INTACT,PT WAS ORIENTED THE AND VERBALIZE UNDERSTANDING,ALL NEEDS ATTENDED,CALL LIGHT WITHIN REACH,WILL CONTINUE TO MONITOR.
--- NOTE | 2022-04-29 23:22 | NUR ---
TRANSPORT TO ROOM.
[2022-04-30] MEDS: POTASSIUM CL. PREMIX PERIPHER. 50 ML IV SCH ×5 (00:02→15:38)
[2022-04-30 00:48] VITALS: BP 120/71
[2022-04-30] MEDS: TEMAZEPAM 15 MG CAPSULE PO PRN ×2 (01:17→21:47)
[2022-04-30 05:17] VITALS: BP 115/68
--- NOTE | 2022-04-30 06:22 | NUR ---
RN CLOSING NOTES; PATIENT IN SLEEPING BUT EASY TO AROUSED,AAOX4 ABLE TO MAKE NEEDS KNOWN,BONY WELL ON RM AIR NO SIGN SOB/DISTRESS NOTED,NO COMPLAINED OF PAIN/DISCOMFORT DURING SHIFT,DUE MEDS GIVEN ORDER,ALL NEEDS ATTENDED,,IV ACCESS ON LAC 18G PATENT AND INTACT,CALL LIGHT WITHIN REACH,WILL ENDORSED TO NEXT SHIFT.
--- NOTE | 2022-04-30 07:30 | NUR ---
SHELLACKER OPENING NOTES; RECEIVED PATIENT IN BED AWAKE , VERBALLY RESPONSIVE ,AAOX4 ABLE TO MAKE NEEDS KNOWN, ON ROOM AIR TOLERATED , ON LITHOGRAPHIC RETOUCHER APPRENTICE WITH READING OF SR 70, NO SIGN SOB/DISTRESS NOTED,NO C/O OF PAIN/DISCOMFORT AT THIS TIME ,DUE ,IV ACCESS ON LAC 18G PATENT AND INTACT, SAFETY MEASURES PROVIDED , CALL LIGHT WITHIN REACH, WILL CONTINUE TO MONITOR .
[2022-04-30 08:53] LABS: BASOPHILS % (AUTO) 0.7 % (0.0-2.0); EOSINOPHILS % (AUTO) 2.9 % (0.0-6.0); HEMATOCRIT 37 % (39-51); HEMOGLOBIN 12.8 g/dL (13.5-17.5); LYMPHOCYTES % (AUTO) 17.9 % (20.0-44.0); MEAN CORPUSCULAR HGB CONC 35 g/dl (31.0-36.0); MEAN CORPUSCULAR VOLUME 92 fL (80-96); MONOCYTES # (AUTO) 0.5 K/uL (0.1-1.30); MONOCYTES % (AUTO) 9.2 % (2.0-12.0); NEUTROPHILS % (AUTO) 69.3 % (43.0-81.0); PLATELET COUNT (AUTO) 292 K/uL (150-450); RED BLOOD CELL COUNT(AUTO) 3.96 MIL/uL (4.5-6.0); WHITE BLOOD COUNT (AUTO) 5.8 K/uL (4.3-11.0)
[2022-04-30 09:01] LABS: CALCIUM, SERUM 8.8 mg/dL (8.5-10.1); CREATININE 0.8 mg/dL (0.6-1.3); MAGNESIUM 2.2 mg/dL (1.8-2.4); PHOSPHORUS 2.8 mg/dL (2.5-4.9)
[2022-04-30] MEDS ORDERED: LOSA100T31 PO (09:16)
[2022-04-30] MEDS ORDERED: CHLO25TA2 PO (09:16)
[2022-04-30 09:23] LABS: POTASSIUM 2.8 mmol/L (3.5-5.1)
[2022-04-30] MEDS: PANTOPRAZOLE 40 MG TABLET.DR PO SCH (09:50)
[2022-04-30] MEDS: VALSARTAN 80 MG TABLET PO SCH (09:50)
[2022-04-30] MEDS: TICAGRELOR 90 MG TABLET PO SCH ×2 (09:50→17:21)
[2022-04-30] MEDS: ASPIRIN 81 MG TAB.CHEW PO SCH (09:51)
[2022-04-30 11:08] LABS: THYROID STIMULATING HORMONE 1.705 uIU/mL (0.358-3.74)
[2022-04-30 12:00] VITALS: BP 150/76
[2022-04-30 12:43] LABS: CALCIUM, SERUM 8.9 mg/dL (8.5-10.1); CREATININE 0.8 mg/dL (0.6-1.3); POTASSIUM 2.9 mmol/L (3.5-5.1)
[2022-04-30 16:46] VITALS: BP 163/80
--- NOTE | 2022-04-30 18:44 | NUR ---
CLINICAL DATA ASSOCIATE CLOSING NOTES; PATIENT IN BED AWAKE , , VERBALLY RESPONSIVE ,AAOX4 ABLE TO MAKE NEEDS KNOWN, ON ROOM AIR TOLERATED , ON MORTGAGE LOAN OFFICER WITH READING OF SR 70, NO SIGN SOB/DISTRESS NOTED,NO C/O OF PAIN/DISCOMFORT AT THIS TIME , ALL DUE MEDS GIVEN ORDERED , NOTED WITH LOW POTASSIUM OF 2.8 AND REPLACED WITH 40 MEQ IV KCL AND TOLERATED WELL ,IV ACCESS ON LAC 18G PATENT AND INTACT, SAFETY MEASURES PROVIDED , CALL LIGHT WITHIN REACH, WILL CONTINUE TO MONITOR .
[2022-04-30] MEDS: IV NS 0.9% 1,000 ML IV PRN (19:01)
--- NOTE | 2022-04-30 19:30 | NUR ---
MANAGER VALIDATION OPENING NOTES RECEIVED PATIENT IN BED AWAKE. A/O X4. BREATHING EVEN AND NON-LABORED ON ROOM AIR. NOT IN APPARENT DISTRESS. C/O HEADACHE 03/13 AND BEING UNABLE TO SLEEP FOR SEVERAL DAYS. ON TELE MONITOR READING SINUS RHYTHM WITH PAC AT 71 BPM. HAS LEFT ANTECUBITAL IV ACCESS #18G WITH NS RUNNING AT 75 ML/HR. NO S/S OF INFILTRATION NOTED. SAFETY MEASURES IN PLACE: BED LOW AND LOCKED, SIDE RAILS UP X2, CALL LIGHT WITHIN REACH. WILL CONTINUE POC.
[2022-04-30 20:00] VITALS: BP 151/71
[2022-04-30] MEDS: MORPHINE SULFATE INJ 2 MG/ML DISP.SYRIN IV PRN ×2 (20:06→20:09)
--- NOTE | 2022-04-30 20:07 | NUR ---
HYDRO PNEUMATIC TESTER NOTES I WAS ABOUT TO GIVE HIS PRN MORPHINE, PATIENT VERBALIZED HE DOESN'T WANT IT. THEN, HE CHANGED HIS MIND AND ASKED FOR IT AGAIN. GAVE PATIENT EDUCATION, VERBALIZED UNDERSTANDING. ADMINISTERED PRN MORPHINE 4MG R/T HEADACHE 03/13. PATIENT REFUSED TYLENOL AND NORCO.
[2022-04-30] MEDS: ATORVASTATIN 40 MG TABLET PO SCH (21:15)
[2022-04-30] MEDS: METOPROLOL SUCCINATE 50 MG TAB.SR.24H PO SCH (21:16)
[2022-04-30] MEDS: MAG HYDROX/AL HYDROX/SIMETH 30 ML UDC PO PRN (21:22)
--- NOTE | 2022-04-30 22:11 | NUR ---
PLAN CONSULTANT NOTES PATIENT C/O DYSPEPSIA AND DOESN'T WANT MAALOX SINCE HE GETS DIARRHEA WHEN HE TAKES IT. NOTIFIED SHANIKA ECHEVERRIA WITH NEW ORDER OF SIMETHICONE 80 MG BID PRN. NOTED AND CARRIED OUT.
[2022-04-30] MEDS: SIMETHICONE 80 MG TAB.CHEW PO PRN (22:22)
[2022-05-01] VITALS: BP 95/53
[2022-05-01 06:35] LABS: BASOPHILS % (AUTO) 0.7 % (0.0-2.0); EOSINOPHILS % (AUTO) 3.8 % (0.0-6.0); HEMATOCRIT 39 % (39-51); LYMPHOCYTES # (AUTO) 1.3 K/uL (0.8-4.8); LYMPHOCYTES % (AUTO) 18.6 % (20.0-44.0); MEAN CORPUSCULAR HGB CONC 36 g/dl (31.0-36.0); MEAN CORPUSCULAR VOLUME 92 fL (80-96); MONOCYTES # (AUTO) 0.6 K/uL (0.1-1.30); MONOCYTES % (AUTO) 9.3 % (2.0-12.0); NEUTROPHILS # (AUTO) 4.6 K/uL (1.8-8.9); NEUTROPHILS % (AUTO) 67.6 % (43.0-81.0); PLATELET COUNT (AUTO) 312 K/uL (150-450); WHITE BLOOD COUNT (AUTO) 6.9 K/uL (4.3-11.0)
--- NOTE | 2022-05-01 07:00 | NUR ---
MEDIA LAW FACULTY MEMBER CLOSING NOTES PATIENT IN BED AWAKE. A/O X4. NO SOB OR NOTED, TOLERATING ROOM AIR WELL. NOT IN ACUTE DISTRESS. DENIES PAIN AT THIS TIME. AFEBRILE. ON TELE MONITOR READING SINUS RHYTHM WITH PAC AT 63 BPM. HAS LEFT FOREARM IV ACCESS #20G WITH NS RUNNING AT 75 ML/HR. INTACT, PATENT AND FLUSHING. ALL DUE MEDS GIVEN AND NEEDS ATTENDED. SAFETY MEASURES MAINTAINED. WILL ENDORSE TO NEXT SHIFT FOR JANELL.
--- NOTE | 2022-05-01 07:21 | NUR ---
BOBBIN DUMPER OPENING NOTES RECEIVED PATIENT IN BED AWAKE, A/O X4. ON ROOM AIR, TOLERATING WELL, . NO S/S OF SOB AND ACUTE DISTRESS AT THE MOMENT. ON TELE MONITOR READING SINUS RHYTHM WITH PAC AT 73 BPM. IV ACCESS AT LEFT ANTECUBITA#18G WITH NS RUNNING AT 75 ML/HR. NO S/S OF INFILTRATION NOTED. SAFETY MEASURES IN PLACE: BED LOW AND LOCKED, SIDE RAILS UP X2, CALL LIGHT AND TABLE WITHIN REACH, WILL CONT WITH PLAN OF CARE DURING SHIFT.
[2022-05-01 08:00] VITALS: BP 182/93
[2022-05-01] MEDS: VALSARTAN 80 MG TABLET PO SCH ×2 (08:26→08:34)
[2022-05-01] MEDS: ASPIRIN 81 MG TAB.CHEW PO SCH (08:26)
[2022-05-01] MEDS: PANTOPRAZOLE 40 MG TABLET.DR PO SCH (08:27)
[2022-05-01] MEDS: TICAGRELOR 90 MG TABLET PO SCH ×2 (08:29→17:12)
[2022-05-01] MEDS: METOPROLOL SUCCINATE 50 MG TAB.SR.24H PO SCH (08:35)
--- NOTE | 2022-05-01 09:40 | NUR ---
PT REFUSED VALSARTAN, STATES ONLY TAKES METOPROLOL SINCE VALSARTAN "MAKES HIM NOT BE ABLE TO SLEEP AT NIGHT". HELD VALSARTAN, WILL GIVE METOPROLOL, MADE MD AWARE.
[2022-05-01 11:11] LABS: BILIRUBIN,TOTAL 1.1 mg/dL (0.2-1.0); CALCIUM, SERUM 9.3 mg/dL (8.5-10.1); CREATININE 0.9 mg/dL (0.6-1.3); MAGNESIUM 2.1 mg/dL (1.8-2.4); PHOSPHORUS 2.7 mg/dL (2.5-4.9); TOTAL PROTEIN, SERUM 7.5 g/dL (6.4-8.2)
[2022-05-01] MEDS: MAG HYDROX/AL HYDROX/SIMETH 30 ML UDC PO PRN (11:11)
[2022-05-01] MEDS: METOPROLOL TARTRATE 50 MG TABLET PO SCH ×2 (11:42→17:12)
[2022-05-01 12:00] VITALS: BP 170/88
--- NOTE | 2022-05-01 12:56 | NUR ---
PER , OK TO DC VALSARTAN
[2022-05-01] MEDS ORDERED: POTASSIUM CHLORIDE 20 MEQ TAB.PRT.SR PO ONE (13:30)
[2022-05-01 16:00] VITALS: BP 146/70
--- NOTE | 2022-05-01 18:43 | NUR ---
MANAGER INFRASTRUCTURE CLOSING NOTES: PATIENT IN BED AWAKE, A/O X4. ON ROOM AIR, TOLERATING WELL. NO S/S OF SOB AND ACUTE DISTRESS AT THE MOMENT. ON TELE MONITOR READING SINUS RHYTHM WITH PAC AT 77 BPM. IV ACCESS AT LEFT AC #18G, NS ON PAUSE PER PT REQUEST. PT HAS BEEN WALKING THE HALLWAY ALL DAY, STATES " THIS IS MY EXERCISE". KEPT PT CLEAN, CRY AND COMFORTABLE. ALL DUE MEDS GIVEN, NEEDS MET AT THIS MOMENT. SAFETY MEASURES IN PLACE: BED LOW AND LOCKED, SIDE RAILS UP X2, CALL LIGHT AND TABLE WITHIN REACH, WILL ENDORSE TO PM SHIFT.
[2022-05-01 20:00] VITALS: BP 177/83
--- NOTE | 2022-05-01 20:01 | NUR ---
RN OPENING NOTE PATIENT AWAKE AND WALKING THE HALLWAYS. A/OX4. NO S/S OF DISTRESS, BREATHING WITHOUT DIFFICULTY ON ROOM AIR. LFA #20 INTACT AND PATENT; PATIENT IS REFUSING IV FLUIDS AT THIS TIME. TELE READS SR 65. SAFETY MEASURES IN PLACE: BED LOCKED AND AT LOWEST POSITION, RAILS UP X2, CALL AWAD WITHIN REACH. WILL CONTINUE TO MONITOR PATIENT.
[2022-05-01] MEDS: ATORVASTATIN 40 MG TABLET PO SCH (21:51)
[2022-05-01] MEDS: TEMAZEPAM 15 MG CAPSULE PO PRN (21:51)
[2022-05-02] MEDS: METOPROLOL TARTRATE 50 MG TABLET PO SCH ×4 (00:18→17:26)
[2022-05-02 04:00] VITALS: BP 139/90
[2022-05-02] MEDS: IV NS 0.9% 1,000 ML IV PRN (06:08)
[2022-05-02 06:38] LABS: CALCIUM, SERUM 9.3 mg/dL (8.5-10.1); CREATININE 0.9 mg/dL (0.6-1.3); POTASSIUM 3.3 mmol/L (3.5-5.1)
--- NOTE | 2022-05-02 06:58 | NUR ---
RN CLOSING NOTE PATIENT AWAKE IN BED. A/OX4. NO S/S OF DISTRESS, BREATHING WITHOUT DIFFICULTY ON ROOM AIR. LFA #20 INTACT AND PATENT W/ NS @75ML/HR; HOWEVER, PATIENT HAS CONTINUED TO DECLINE IV FLUIDS. PATIENT, ALTHOUGH COOPERATIVE, IS VERY PARANOID ABOUT GERMS AND THIS HAS INCREASED HIS ANXIETY DURING SHIFT. PATIENT BELIEVES VIRTUALLY ALL ITEMS NEAR HIM ARE "CONTAMINATED" AND NEED TO BE CHANGED OUT, COMPLETELY REMOVED FROM HIS ROOM, OR RE-DISINFECTED. TELE READS SR 63. SAFETY MEASURES IN PLACE: BED LOCKED AND AT LOWEST POSITION, RAILS UP X2, CALL AWAD WITHIN REACH. WILL ENDORSE TO NEXT SHIFT FOR JANELL.
--- NOTE | 2022-05-02 07:15 | NUR ---
ENGINEER DESIGN AND CONSTRUCTION OPENING NOTES RECEIVED PT AWAKE AND LYING IN BED. A/OX4. ABLE TO MAKE NEEDS KNOWN. ON RA WITH NO SIGNS OF SOB OR LABORED BREATHING. ON TELE MONITOR SHOWING SR @ 63 BPM. IV LFA #20G SL, PATENT AND INTACT. IVF NOT RUNNING AT THIS TIME PER PT'S REQUEST. PT COOPERATIVE AND STATES HE WANTS TO MAKE SURE SOMEONE TAKES HIS ORDER FOR BREAKFAST BECAUSE HE MENTIONS THAT HE HAS A SPECIAL DIET. SAFETY PRECAUTIONS IMPLEMENTED. BED LOCKED AND IN LOWEST POSITION. BED RAILS UP X2. CALL LIGHT WITHIN REACH. WILL CONTINUE TO MONITOR.
--- NOTE | 2022-05-02 08:20 | NUR ---
RN NOTES PT NOW AGREED TO HAVE HIS IVF OF NS @ 75ML/HR CONNECTED. NO S/S OF INFILTRATION AT SITE NOTED.
[2022-05-02 08:39] VITALS: BP 158/86
[2022-05-02] MEDS: TICAGRELOR 90 MG TABLET PO SCH ×2 (08:39→16:49)
[2022-05-02] MEDS: PANTOPRAZOLE 40 MG TABLET.DR PO SCH (08:39)
[2022-05-02] MEDS: ASPIRIN 81 MG TAB.CHEW PO SCH (08:40)
[2022-05-02] MEDS ORDERED: POTASSIUM CHLORIDE 20 MEQ TAB.PRT.SR PO ONE (09:00)
[2022-05-02] MEDS: SIMETHICONE 80 MG TAB.CHEW PO PRN (10:25)
[2022-05-02] MEDS: POTASSIUM CHLORIDE 20 MEQ TAB.PRT.SR PO SCH ×2 (11:54→12:53)
[2022-05-02] MEDS: MAG HYDROX/AL HYDROX/SIMETH 30 ML UDC PO PRN (13:05)
[2022-05-02] MEDS ORDERED: CT SWABBABLE VALVE TRANS SET 1 EA INFUS.SET MC ONE (13:55)
[2022-05-02] MEDS ORDERED: IOHEXOL-350 100 ML VIAL IV ONE (13:55)
[2022-05-02] MEDS ORDERED: IV NS 0.9% 250 ML IV ONE (13:55)
[2022-05-02] MEDS ORDERED: METOPROLOL TARTRATE INJ 5 MG/5 ML AMPUL IVP PRN (14:00)
[2022-05-02] MEDS ORDERED: NITROGLYCERIN 0.4 MG/TAB BOTTLE SL ONE (14:00)
--- NOTE | 2022-05-02 14:09 | NUR ---
RN NOTES PT PICKED-UP FOR [facility].
[2022-05-02] MEDS ORDERED: METOPROLOL TARTRATE INJ 5 MG/5 ML AMPUL ONE (14:19)
[2022-05-02] MEDS ORDERED: NITROGLYCERIN 0.4 MG/TAB BOTTLE ONE (14:19)
[2022-05-02] MEDS ORDERED: CLONIDINE HCL 0.1 MG TABLET PO PRN (17:00)
--- NOTE | 2022-05-02 17:00 | NUR ---
RN NOTES REPORTED TO DR LOZADA OF PT'S [facility] RESULTS AND DR LOZADA CLEARED PT FOR D/C. INFORMED MANAGER MARKET DEVELOPMENT DENEEN MORRELL WITH ORDER TO D/C HOME PT.
--- NOTE | 2022-05-02 17:10 | NUR ---
RN NOTES PT NOTED WITH HIGH BP OF 170/93 MMHG, MEDICAL RECORDS CODER DENEEN MORRELL WITH ORDER TO GIVE PT CLONIDINE 0.1 MG PO X1 DOSE AND CARRIED OUT.
[2022-05-02 17:26] VITALS: BP 176/89
--- NOTE | 2022-05-02 17:45 | NUR ---
RN NOTES PT'S LATEST BP WAS 148/78 MMHG. DIAGNOSTIC TECHNOLOGIST PETROS MADE AWARE.
--- NOTE | 2022-05-02 18:58 | NUR ---
RN DISCHARGED NOTES PT DISCHARGED HOME IN STABLE CONDITION. A/O X4. ABLE TO MAKE NEEDS KNOWN. ALL BELONGINGS ACCOUNTED FOR AND PT SIGNED BELONGINGS LIST. IV ACCESS ON LFA G#2O AND RAC G#18 BOTH REMOVED, DRY PRESSURE DRESSING APPLIED AT SITES. HEALTH TEACHINGS/ DISCHARGE INSTRUCTIONS GIVEN TO PT AND HIS SISTER KARLA, BOTH VERBALIZED UNDERSTANDING. EXIT FOLDER HANDED TO PT'S SISTER. PT'S NAME ARMBAND REMOVED. PT LEFT UNIT @ 1855 VIA WHEELCHAIR ACCOMPANIED BY MARIE NUÑEZ AND PT'S SISTER KARLA.
== END 2022-05-02 19:00 | disposition home or self-care (01) | DRG 303 ==
LOC: ER 19:23 → TELE 23:13 → MED 05-02 12:26
PROVIDERS: ADMIT Nurse Practitioner Acute Care; ATTEND Nurse Practitioner Acute Care
DX: I25.10 Atherosclerotic heart disease of native coronary artery without angina pectoris (principal); I24.9 Acute ischemic heart disease, unspecified; E87.1 Hypo-osmolality and hyponatremia; E87.6 Hypokalemia; E11.9 Type 2 diabetes mellitus without complications; E78.5 Hyperlipidemia, unspecified; G47.00 Insomnia, unspecified; F32.A Depression, unspecified; I10 Essential (primary) hypertension; N40.0 Benign prostatic hyperplasia without lower urinary tract symptoms; Z79.4 Long term (current) use of insulin; Z79.82 Long term (current) use of aspirin; Z95.5 Presence of coronary angioplasty implant and graft; E86.1 Hypovolemia; Z20.822 Contact with and (suspected) exposure to COVID-19
CPT/HCPCS: 36415; 71045-TC; 75574; 80048-TC; 80053-TC; 80061-TC; 82962-TC; 83735-TC; 84100-TC; 84443-TC; 84484-TC; 85025-TC; 87081-TC; 93307-TC; C9803; G0378; J2270; J3480; J3490; J7030; J7040; J7050; Q9967

== ENCOUNTER 2022-06-06 07:53 | Emergency (ER) | payer OTHER ==
[~2022-06-06] VITALS: Ht 167.6 cm; Wt 64.9 kg
[~2022-06-06 07:53] MED LIST changes: -CALC-11 PO; +CHLO25TA2 PO; -CLON0.1T PO; -CYAN-51 PO; -INSU100I26 SQ; -INSU100V3 SQ; +LOSA100T31 PO; -ROSU10TA29 PO; -TEMA15CA5 PO; -THIA50TA10 PO; -VALS80TA31 PO
--- NOTE | 2022-06-06 08:54 | NUR ---
COVID AND FLU SWABS DONE AND SENT TO LAB
--- NOTE | 2022-06-06 11:00 | NUR ---
C/O COUGH X 2 WEEKS, NO SOB, NO CP. AMBULATORY, BREATHING EVEN AND UNLABORED
[2022-06-06] MEDS ORDERED: BENZ-13 PO (11:44)
--- NOTE | 2022-06-06 12:05 | NUR ---
Patient discharged to home in stable condition. Written and verbal after care instructions given. Patient verbalizes understanding of instruction.
[2022-06-06 12:08] VITALS: BP 135/70
== END 2022-06-06 12:05 | disposition home or self-care (01) ==
LOC: ER 08:15
DX: U07.1 COVID-19 (principal); I10 Essential (primary) hypertension; E11.9 Type 2 diabetes mellitus without complications; E78.5 Hyperlipidemia, unspecified; I25.10 Atherosclerotic heart disease of native coronary artery without angina pectoris; Z79.82 Long term (current) use of aspirin; Z79.899 Other long term (current) drug therapy; Z88.1 Allergy status to other antibiotic agents
CPT/HCPCS: 99284; 71045; 87426; 87804; C9803

== ENCOUNTER 2023-02-03 12:21 | Emergency (ER) | payer OTHER ==
[~2023-02-03] VITALS: Ht 167.6 cm; Wt 65.8 kg
[~2023-02-03 12:21] MED LIST changes: +BENZ-13 PO
[2023-02-03 13:00] LABS: BASOPHILS # (AUTO) 0.2 K/uL (0.0-0.2); BASOPHILS % (AUTO) 2.4 % (0.0-2.0); EOSINOPHILS # (AUTO) 0.3 K/uL (0.0-0.7); EOSINOPHILS % (AUTO) 3.5 % (0.0-6.0); HEMATOCRIT 44 % (39-51); HEMOGLOBIN 14.8 g/dL (13.5-17.5); LYMPHOCYTES % (AUTO) 13.2 % (20.0-44.0); MEAN CORPUSCULAR HEMOGLOBIN 32 PG (26.0-33.0); MEAN CORPUSCULAR HGB CONC 34 g/dl (31.0-36.0); MEAN CORPUSCULAR VOLUME 95 fL (80-96); MONOCYTES # (AUTO) 0.6 K/uL (0.1-1.30); MONOCYTES % (AUTO) 7.8 % (2.0-12.0); NEUTROPHILS # (AUTO) 5.7 K/uL (1.8-8.9); NEUTROPHILS % (AUTO) 73.1 % (43.0-81.0); PLATELET COUNT (AUTO) 176 K/uL (150-450); RED BLOOD CELL COUNT(AUTO) 4.62 MIL/uL (4.5-6.0); RED CELL DISTRIBUTION WIDTH 13.4 % (11.5-15.0); WHITE BLOOD COUNT (AUTO) 7.9 K/uL (4.3-11.0)
[2023-02-03 13:17] LABS: ALANINE AMINOTRANSFERASE 38 U/L (12-78); ALBUMIN 3.8 g/dL (3.4-5.0); ALKALINE PHOSPHATASE 75 U/L (46-116); ASPARTATE AMINOTRANSFERASE 24 U/L (15-37); BILIRUBIN,DIRECT 0.1 mg/dL (0.0-0.2); BILIRUBIN,TOTAL 0.5 mg/dL (0.2-1.0); CALCIUM, SERUM 9.1 mg/dL (8.5-10.1); CARBON DIOXIDE 27 mmol/L (21-32); CHLORIDE 101 mmol/L (98-107); CREATININE 0.7 mg/dL (0.6-1.3); GLUCOSE 129 mg/dL (74-106); POTASSIUM 3.7 mmol/L (3.5-5.1); SODIUM SERUM 135 mmol/L (136-145); UREA NITROGEN, BLOOD 6 mg/dL (7-18)
[2023-02-03] MEDS ORDERED: CT SWABBABLE VALVE TRANS SET 1 EA INFUS.SET MC ONE (13:33)
[2023-02-03] MEDS ORDERED: IOHEXOL-350 100 ML VIAL IV ONE (13:33)
[2023-02-03] MEDS ORDERED: IV NS 0.9% 250 ML IV ONE (13:34)
[2023-02-03 16:25] VITALS: BP 158/88; TEMP 98.8; O2SAT 100
== END 2023-02-03 16:25 | disposition home or self-care (01) ==
LOC: ER 12:25
DX: R20.0 Anesthesia of skin (principal); I10 Essential (primary) hypertension; E78.5 Hyperlipidemia, unspecified; I25.10 Atherosclerotic heart disease of native coronary artery without angina pectoris; E11.9 Type 2 diabetes mellitus without complications; Z79.899 Other long term (current) drug therapy; Z79.82 Long term (current) use of aspirin; Z98.890 Other specified postprocedural states; Z88.1 Allergy status to other antibiotic agents
CPT/HCPCS: 99285; 75635; 71045; 93005; 85025; 80048; 80076; 36415; 84484; 82962; J7050; Q9967

== ENCOUNTER 2023-05-22 12:37 | Inpatient (IN) | payer OTHER ==
[~2023-05-22] VITALS: Ht 167.6 cm; Wt 73.5 kg
[2023-05-22 13:16] LABS: BASOPHILS % (AUTO) 0.5 % (0.0-2.0); EOSINOPHILS # (AUTO) 0.4 K/uL (0.0-0.7); EOSINOPHILS % (AUTO) 5.2 % (0.0-6.0); HEMATOCRIT 42 % (39-51); HEMOGLOBIN 14.4 g/dL (13.5-17.5); LYMPHOCYTES # (AUTO) 1.5 K/uL (0.8-4.8); LYMPHOCYTES % (AUTO) 19.1 % (20.0-44.0); MEAN CORPUSCULAR HEMOGLOBIN 33 PG (26.0-33.0); MEAN CORPUSCULAR HGB CONC 35 g/dl (31.0-36.0); MEAN CORPUSCULAR VOLUME 94 fL (80-96); MONOCYTES # (AUTO) 0.6 K/uL (0.1-1.30); MONOCYTES % (AUTO) 7.7 % (2.0-12.0); NEUTROPHILS # (AUTO) 5.1 K/uL (1.8-8.9); NEUTROPHILS % (AUTO) 67.5 % (43.0-81.0); PLATELET COUNT (AUTO) 191 K/uL (150-450); RED BLOOD CELL COUNT(AUTO) 4.42 MIL/uL (4.5-6.0); RED CELL DISTRIBUTION WIDTH 12.9 % (11.5-15.0); WHITE BLOOD COUNT (AUTO) 7.6 K/uL (4.3-11.0)
[2023-05-22 13:27] LABS: CALCIUM, SERUM 9.2 mg/dL (8.5-10.1); CARBON DIOXIDE 26 mmol/L (21-32); CHLORIDE 101 mmol/L (98-107); CREATININE 1.2 mg/dL (0.6-1.3); GLUCOSE 152 mg/dL (74-106); POTASSIUM 3.4 mmol/L (3.5-5.1); SODIUM SERUM 136 mmol/L (136-145); UREA NITROGEN, BLOOD 8 mg/dL (7-18)
[2023-05-22 13:43] LABS: NT-PRO BNP 969 pg/mL (0-125)
[2023-05-22] MEDS ORDERED: ASPI-1420 PO (13:52)
[2023-05-22] MEDS ORDERED: NIFE-35 PO (13:52)
[2023-05-22] MEDS ORDERED: ISOS60TA72 PO (13:52)
[2023-05-22] MEDS ORDERED: ZOLPIDEM TARTRATE 5 MG TABLET PO PRN (15:00)
[2023-05-22] MEDS ORDERED: MORPHINE SULFATE INJ 2 MG/ML DISP.SYRIN IV PRN (15:00)
[2023-05-22] MEDS ORDERED: MAG HYDROX/AL HYDROX/SIMETH 30 ML UDC PO PRN (15:00)
[2023-05-22] MEDS ORDERED: MAGNESIUM HYDROXIDE 30 ML UDC PO PRN (15:00)
[2023-05-22] MEDS ORDERED: ACETAMINOPHEN 325 MG TABLET PO PRN (15:00)
[2023-05-22] MEDS ORDERED: NITROGLYCERIN 0.4 MG/TAB BOTTLE SL ONE (15:00)
[2023-05-22] MEDS ORDERED: ONDANSETRON HCL/PF 4 MG/2 ML VIAL IVP PRN (15:00)
[2023-05-22] MEDS ORDERED: Z GUARD REMEDY 4 OZ OINT TP PRN (15:00)
[2023-05-22 16:00] VITALS: BP 148/80; TEMP 97.7; O2SAT 96
[2023-05-22] MEDS: NIFEdipine XL (30MG) 30 MG TAB PO SCH (16:52)
[2023-05-22] MEDS: ENOXAPARIN SODIUM 40 MG/0.4 ML DISP.SYRIN SQ SCH (16:53)
[2023-05-22 20:00] VITALS: BP 131/78; TEMP 98.3; O2SAT 97
[2023-05-23] VITALS: BP 129/76; TEMP 98.5; O2SAT 97
[2023-05-23 04:00] VITALS: BP 157/89; TEMP 98.1; O2SAT 98
[2023-05-23 06:05] LABS: BASOPHILS % (AUTO) 0.7 % (0.0-2.0); EOSINOPHILS # (AUTO) 0.4 K/uL (0.0-0.7); HEMATOCRIT 41 % (39-51); HEMOGLOBIN 14.5 g/dL (13.5-17.5); LYMPHOCYTES # (AUTO) 1.5 K/uL (0.8-4.8); LYMPHOCYTES % (AUTO) 23.5 % (20.0-44.0); MEAN CORPUSCULAR HEMOGLOBIN 33 PG (26.0-33.0); MEAN CORPUSCULAR HGB CONC 35 g/dl (31.0-36.0); MEAN CORPUSCULAR VOLUME 94 fL (80-96); MONOCYTES # (AUTO) 0.5 K/uL (0.1-1.30); MONOCYTES % (AUTO) 8.2 % (2.0-12.0); NEUTROPHILS % (AUTO) 61.6 % (43.0-81.0); PLATELET COUNT (AUTO) 185 K/uL (150-450); RED BLOOD CELL COUNT(AUTO) 4.41 MIL/uL (4.5-6.0); RED CELL DISTRIBUTION WIDTH 13.1 % (11.5-15.0); WHITE BLOOD COUNT (AUTO) 6.5 K/uL (4.3-11.0)
[2023-05-23 06:28] LABS: CALCIUM, SERUM 8.7 mg/dL (8.5-10.1); CREATININE 0.9 mg/dL (0.6-1.3); MAGNESIUM 2.1 mg/dL (1.8-2.4); PHOSPHORUS 3.5 mg/dL (2.5-4.9); POTASSIUM 3.1 mmol/L (3.5-5.1)
[2023-05-23 08:00] VITALS: BP 130/72; TEMP 98.1; O2SAT 98
[2023-05-23] MEDS: ASPIRIN EC 81 MG TABLET.DR PO SCH (08:20)
[2023-05-23] MEDS: ISOSORBIDE MONONITRATE (30MG) 30 MG TAB.SR.24H PO SCH (08:21)
[2023-05-23] MEDS: METOPROLOL SUCCINATE 50 MG TAB.SR.24H PO SCH (08:21)
[2023-05-23] MEDS: LOSARTAN POTASSIUM 50 MG TABLET PO SCH (08:22)
[2023-05-23] MEDS: NIFEdipine XL (30MG) 30 MG TAB PO SCH ×2 (08:22→18:27)
[2023-05-23] MEDS ORDERED: POTASSIUM CHLORIDE 20 MEQ TAB.PRT.SR PO ONE (09:00)
[2023-05-23 12:00] VITALS: BP 122/72; TEMP 98.3; O2SAT 98
[2023-05-23] MEDS: ATORVASTATIN 10 MG TABLET PO SCH (13:19)
[2023-05-23 14:04] LABS: CHOLESTEROL 173 mg/dL (<200); HDL CHOLESTEROL 44 mg/dL (40-60); LDL 112 mg/dL (0-99); TRIGLYCERIDES 111 mg/dL (30-150)
[2023-05-23] MEDS ORDERED: IOHEXOL-350 100 ML VIAL IV ONE (14:31)
[2023-05-23] MEDS ORDERED: IV NS 0.9% 250 ML IV ONE (14:31)
[2023-05-23] MEDS: METOPROLOL TARTRATE INJ 5 MG/5 ML AMPUL IVP PRN ×2 (14:40→14:45)
[2023-05-23] MEDS ORDERED: NITROGLYCERIN 0.4 MG/TAB BOTTLE SL ONE (15:00)
[2023-05-23 16:00] VITALS: BP 125/78; TEMP 97.1; O2SAT 98
[2023-05-23] MEDS: ENOXAPARIN SODIUM 40 MG/0.4 ML DISP.SYRIN SQ SCH (18:28)
[2023-05-23 20:00] VITALS: BP 136/76; TEMP 97.7; O2SAT 97
[2023-05-24] VITALS: BP 148/77; TEMP 97.5; O2SAT 96
[2023-05-24 04:00] VITALS: BP 145/75; TEMP 97.8; O2SAT 97
[2023-05-24 08:00] VITALS: BP 145/75; TEMP 97.7; O2SAT 98
[2023-05-24 08:24] LABS: BASOPHILS # (AUTO) 0.1 K/uL (0.0-0.2); BASOPHILS % (AUTO) 0.7 % (0.0-2.0); EOSINOPHILS # (AUTO) 0.4 K/uL (0.0-0.7); EOSINOPHILS % (AUTO) 5.2 % (0.0-6.0); HEMATOCRIT 45 % (39-51); HEMOGLOBIN 15.5 g/dL (13.5-17.5); LYMPHOCYTES # (AUTO) 1.5 K/uL (0.8-4.8); LYMPHOCYTES % (AUTO) 19.5 % (20.0-44.0); MEAN CORPUSCULAR HEMOGLOBIN 32 PG (26.0-33.0); MEAN CORPUSCULAR HGB CONC 35 g/dl (31.0-36.0); MEAN CORPUSCULAR VOLUME 94 fL (80-96); MONOCYTES # (AUTO) 0.6 K/uL (0.1-1.30); MONOCYTES % (AUTO) 8.4 % (2.0-12.0); NEUTROPHILS % (AUTO) 66.2 % (43.0-81.0); PLATELET COUNT (AUTO) 216 K/uL (150-450); RED BLOOD CELL COUNT(AUTO) 4.79 MIL/uL (4.5-6.0); RED CELL DISTRIBUTION WIDTH 12.8 % (11.5-15.0); WHITE BLOOD COUNT (AUTO) 7.6 K/uL (4.3-11.0)
[2023-05-24 08:36] LABS: CALCIUM, SERUM 9.2 mg/dL (8.5-10.1); CREATININE 0.9 mg/dL (0.6-1.3); MAGNESIUM 2.2 mg/dL (1.8-2.4); PHOSPHORUS 4.1 mg/dL (2.5-4.9); POTASSIUM 3.6 mmol/L (3.5-5.1)
[2023-05-24] MEDS ORDERED: ATORVASTATIN 40 MG TABLET PO SCH (09:00)
[2023-05-24] MEDS: ASPIRIN EC 81 MG TABLET.DR PO SCH (09:09)
[2023-05-24] MEDS: ISOSORBIDE MONONITRATE (30MG) 30 MG TAB.SR.24H PO SCH (09:11)
[2023-05-24] MEDS: LOSARTAN POTASSIUM 50 MG TABLET PO SCH (09:11)
[2023-05-24 09:12] VITALS: BP 155/90
[2023-05-24] MEDS: METOPROLOL SUCCINATE 50 MG TAB.SR.24H PO SCH (09:12)
[2023-05-24] MEDS: ATORVASTATIN 10 MG TABLET PO SCH (09:12)
[2023-05-24] MEDS: NIFEdipine XL (30MG) 30 MG TAB PO SCH (09:12)
== END 2023-05-24 12:38 | disposition home or self-care (01) | DRG 303 ==
LOC: ER 13:09 → TELE1 15:18 → MEDSG1 05-24 08:35
PROVIDERS: ADMIT Internal Medicine; ATTEND Internal Medicine
DX: I25.119 Atherosclerotic heart disease of native coronary artery with unspecified angina pectoris (principal); I10 Essential (primary) hypertension; E11.9 Type 2 diabetes mellitus without complications; I16.0 Hypertensive urgency; E78.5 Hyperlipidemia, unspecified; Z95.5 Presence of coronary angioplasty implant and graft
CPT/HCPCS: 36415; 71045-TC; 75574; 80048-TC; 80061-TC; 83735-TC; 83880; 84100-TC; 84484-TC; 85025-TC; 93307-TC; G0378; J1650; J3490; J7050; Q9967

== ENCOUNTER 2023-09-12 21:54 | Inpatient (IN) | payer OTHER ==
[~2023-09-12] VITALS: Ht 167.6 cm; Wt 86.2 kg
[~2023-09-12 21:54] MED LIST changes: -BENZ-13 PO; -CHLO25TA2 PO; +ISOS60TA72 PO; +NIFE-35 PO; -QUET200T84 PO; -TICA90TA PO
[2023-09-12 22:00] VITALS: O2SAT 97
[2023-09-12 22:43] LABS: EOSINOPHILS # (AUTO) 0.2 K/uL (0.0-0.7); EOSINOPHILS % (AUTO) 2.4 % (0.0-6.0); HEMATOCRIT 43 % (39-51); HEMOGLOBIN 14.9 g/dL (13.5-17.5); LYMPHOCYTES # (AUTO) 1.2 K/uL (0.8-4.8); LYMPHOCYTES % (AUTO) 14.6 % (20.0-44.0); MEAN CORPUSCULAR HEMOGLOBIN 32 PG (26.0-33.0); MEAN CORPUSCULAR HGB CONC 35 g/dl (31.0-36.0); MEAN CORPUSCULAR VOLUME 93 fL (80-96); MONOCYTES # (AUTO) 0.5 K/uL (0.1-1.30); MONOCYTES % (AUTO) 5.7 % (2.0-12.0); NEUTROPHILS # (AUTO) 6.6 K/uL (1.8-8.9); NEUTROPHILS % (AUTO) 77.3 % (43.0-81.0); PLATELET COUNT (AUTO) 215 K/uL (150-450); RED BLOOD CELL COUNT(AUTO) 4.63 MIL/uL (4.5-6.0); RED CELL DISTRIBUTION WIDTH 12.9 % (11.5-15.0); WHITE BLOOD COUNT (AUTO) 8.5 K/uL (4.3-11.0)
[2023-09-12 22:50] LABS: CALCIUM, SERUM 9.2 mg/dL (8.5-10.1); CARBON DIOXIDE 29 mmol/L (21-32); CHLORIDE 100 mmol/L (98-107); CREATININE 1.1 mg/dL (0.6-1.3); GLUCOSE 208 mg/dL (74-106); POTASSIUM 3.4 mmol/L (3.5-5.1); SODIUM SERUM 137 mmol/L (136-145); UREA NITROGEN, BLOOD 16 mg/dL (7-18)
[2023-09-13] MEDS ORDERED: ACETAMINOPHEN 325 MG TABLET PO PRN (00:30)
[2023-09-13] MEDS ORDERED: ONDANSETRON HCL/PF 4 MG/2 ML VIAL IVP PRN (00:30)
[2023-09-13] MEDS ORDERED: MAGNESIUM HYDROXIDE 30 ML UDC PO PRN (00:30)
[2023-09-13] MEDS ORDERED: TEMAZEPAM 15 MG CAPSULE PO PRN (00:30)
[2023-09-13] MEDS ORDERED: NITROGLYCERIN 0.4 MG/TAB BOTTLE SL PRN (00:30)
[2023-09-13] MEDS ORDERED: Z GUARD REMEDY 4 OZ OINT TP PRN (00:30)
[2023-09-13] MEDS ORDERED: MORPHINE SULFATE INJ 2 MG/ML DISP.SYRIN IV PRN (00:30)
[2023-09-13] MEDS ORDERED: DEXTROSE 50%-WATER 50 ML DISP.SYRIN IV PRN (00:30)
[2023-09-13] MEDS ORDERED: MAG HYDROX/AL HYDROX/SIMETH 30 ML UDC PO PRN (00:30)
[2023-09-13 00:45] VITALS: BP 164/91; TEMP 97.8; O2SAT 99
[2023-09-13] MEDS: HYDROCODONE/APAP 5/325MG TABLET PO PRN (03:20)
[2023-09-13 04:00] VITALS: BP 144/73; TEMP 98.1; O2SAT 98
[2023-09-13] MEDS: INSULIN REGULAR, HUMAN 100 UNIT/ML 3 ML VIAL SQ PRN (06:10)
[2023-09-13] MEDS: PANTOPRAZOLE 40 MG TABLET.DR PO SCH (07:22)
[2023-09-13] MEDS: BLOOD SUGAR DIAGNOSTIC 1 EACH STRIP IN SCH (07:23)
[2023-09-13 07:30] VITALS: BP 148/90; TEMP 97.7; O2SAT 98
[2023-09-13] MEDS ORDERED: PICOT PO (07:56)
[2023-09-13] MEDS ORDERED: ALBU18HF2 IH (07:56)
[2023-09-13] MEDS ORDERED: TICA90TA PO (07:56)
[2023-09-13] MEDS ORDERED: AMIL5TAB9 PO (07:56)
[2023-09-13] MEDS ORDERED: CLON0.1T PO (07:56)
[2023-09-13] MEDS: ASPIRIN 81 MG TAB.CHEW PO SCH (08:11)
[2023-09-13] MEDS: ENOXAPARIN SODIUM 40 MG/0.4 ML DISP.SYRIN SQ SCH (08:13)
[2023-09-13] MEDS ORDERED: ALBUTEROL FS 2.5 MG/3 ML VIAL.NEB NEB PRN (10:00)
[2023-09-13] MEDS: TICAGRELOR 90 MG TABLET PO SCH (10:15)
[2023-09-13] MEDS: AMILORIDE HCL 5 MG TABLET PO SCH (10:15)
[2023-09-13] MEDS: NIFEdipine XL (30MG) 30 MG TAB PO SCH (10:15)
[2023-09-13] MEDS ORDERED: IOHEXOL-350 100 ML VIAL IV ONE (10:59)
[2023-09-13] MEDS ORDERED: METOPROLOL TARTRATE INJ 5 MG/5 ML AMPUL ONE ×2 (11:00→11:03)
[2023-09-13] MEDS ORDERED: NITROGLYCERIN 0.4 MG/TAB BOTTLE ONE (11:00)
[2023-09-13] MEDS ORDERED: IV NS 0.9% 250 ML IV ONE (11:01)
[2023-09-13] MEDS ORDERED: CT SWABBABLE VALVE TRANS SET 1 EA INFUS.SET MC ONE (11:01)
[2023-09-13] MEDS: METOPROLOL TARTRATE INJ 5 MG/5 ML AMPUL IVP PRN (11:26)
[2023-09-13] MEDS: NITROGLYCERIN 0.4 MG/TAB BOTTLE SL ONE (11:38)
[2023-09-13] MEDS: CLONIDINE HCL 0.1 MG TABLET PO PRN (12:16)
[2023-09-13 12:50] VITALS: BP 151/86
[2023-09-13 16:00] VITALS: BP 142/84; TEMP 97.7; O2SAT 99
[2023-09-14] MEDS ORDERED: LOSARTAN POTASSIUM 50 MG TABLET PO SCH (09:00)
[2023-09-14] MEDS ORDERED: ISOSORBIDE MONONITRATE (30MG) 30 MG TAB.SR.24H PO SCH (09:00)
[2023-09-14] MEDS ORDERED: METOPROLOL SUCCINATE 50 MG TAB.SR.24H PO SCH (09:00)
== END 2023-09-13 17:46 | disposition home or self-care (01) | DRG 303 ==
LOC: ER 21:57 → TELE 09-13 00:05
PROVIDERS: ADMIT Internal Medicine; ATTEND Internal Medicine
DX: I25.110 Atherosclerotic heart disease of native coronary artery with unstable angina pectoris (principal); I10 Essential (primary) hypertension; E78.5 Hyperlipidemia, unspecified; E11.9 Type 2 diabetes mellitus without complications; Z86.16 Personal history of COVID-19; Z95.5 Presence of coronary angioplasty implant and graft
CPT/HCPCS: 36415; 71045-TC; 75574; 80048-TC; 82962-TC; 84484-TC; 85025-TC; G0378; J1650; J1815; J3490; J7050; Q9967